=== PATIENT | male | born 1970 | race African-American/Black ===

== ENCOUNTER 2017-11-19 01:25 | Inpatient (IN) | payer OTHER ==
[~2017-11-19] VITALS: Ht 170.2 cm; Wt 117.5 kg
[~2017-11-19 01:25] MED LIST: ASPI81EC98 PO; NIFE90TE3 PO; TRA200 PO; ZOLP10TA1 PO
[2017-11-19 01:30] VITALS: BP 148/100
[2017-11-19] MEDS ORDERED: NACL 0.9% 1,000 ML IV ONE (01:35)
[2017-11-19] MEDS ORDERED: CLOPIDOGREL 75 MG TAB PO ONE (01:35)
--- NOTE | 2017-11-19 01:35 | NUR ---
PT TAKEN TO BED 2
--- NOTE | 2017-11-19 01:36 | NUR ---
47 Y/O M W/C/O HEMATURIA, R FLANK PAIN X 2 DAYS, AND CHEST PAIN X THIS AM WHICH RADIATES TO JAW AND NECK. PT PLACED ON OFFSET PRESS OPERATOR, TACHY, NON-DIAPHORECTIC. PT DENIES ANY NAUSEA. EKG DONE AT BEDSIDE, SINUS TACHY. ER MD MADE AWARE.
[2017-11-19] MEDS ORDERED: DICYCLOMINE HCL LIQUID 10 MG/5 ML UDC PO ONE (01:50)
[2017-11-19] MEDS ORDERED: MORPHINE SULFATE 2 MG/ML SYR IVP ONE ×2 (01:50→03:10)
[2017-11-19] MEDS ORDERED: LIDOCAINE VISCOUS 2% 20 ML UDC PO ONE (01:50)
[2017-11-19] MEDS ORDERED: ALUMINUM HYD/MAG/SIMETHICONE 30 ML UDC PO ONE (01:50)
[2017-11-19 01:53] LABS: BASOPHILS % (AUTO) 0.3 % (0.0-2.0); EOSINOPHILS % (AUTO) 0.1 % (0.0-4.0); HEMATOCRIT 39.2 % (36-52); HEMOGLOBIN 13.3 g/dL (12.0-18.0); LYMPHOCYTES # (AUTO) 0.4 K/uL (2.0-11.5); MEAN CORPUSCULAR HEMOGLOBIN 31 pg (27-31); MEAN CORPUSCULAR HGB CONC 34 g/dL (33-37); MEAN CORPUSCULAR VOLUME 92.4 fL (80-94); MONOCYTES # (AUTO) 0.1 K/uL (0.8-1.0); MONOCYTES % (AUTO) 0.7 % (1.7-9.3); NEUTROPHILS # (AUTO) 10.6 K/uL (1.8-7.7); NEUTROPHILS % (AUTO) 95.1 % (42.2-75.2); PLATELET COUNT (AUTO) 342 K/uL (140-450); RED BLOOD CELL COUNT(AUTO) 4.24 MIL/uL (4.20-6.10); RED CELL DISTRIBUTION WIDTH 14.6 % (11.6-13.7); WHITE BLOOD COUNT (AUTO) 11.2 K/uL (4.8-10.8)
[2017-11-19 02:04] LABS: LYMPHOCYTES % (AUTO) 3.8 % (20.5-51.1)
[2017-11-19] MEDS ORDERED: NITROGLYCERIN 2% 1 GM PKT TP ONE (02:05)
[2017-11-19 02:07] LABS: ALBUMIN 3.9 g/dL (3.4-5.0); ANION GAP 20.1 (8-16); CREATININE 2.8 mg/dL (0.7-1.3); POTASSIUM 3.1 mmol/L (3.5-5.1); TOTAL BILIRUBIN 0.3 mg/dL (0.0-1.0)
[2017-11-19] MEDS ORDERED: MORPHINE SULFATE 4 MG/ML SYR ONE ×2 (02:09→03:15)
[2017-11-19 02:13] LABS: PROTHROMBIN TIME 10.4 secs (10.8-13.4)
--- NOTE | 2017-11-19 02:16 | NUR ---
PT TO CT VIA [facility] ACCOMPANIED BY COMPLIANCE EXAMINER
--- NOTE | 2017-11-19 02:17 | NUR ---
PT TAKEN TO RAD
--- NOTE | 2017-11-19 02:28 | NUR ---
PT BACK FROM CT
--- NOTE | 2017-11-19 02:37 | NUR ---
PT OOB TO BATHROOM. SPECIMINE CUP PROVIDED
[2017-11-19] MEDS ORDERED: LEVOFLOXACIN 500 MG/D5W PREMIX 100 ML IV ONE (03:00)
--- NOTE | 2017-11-19 03:00 | NUR ---
IV MEETS RESISTANCE. ROMOVED TIP INTACT. WILL ATTEMPT A NEW IV.
[2017-11-19] MEDS ORDERED: ONDANSETRON 4 MG/2 ML VIAL IVP PRN (03:05)
[2017-11-19] MEDS ORDERED: HYDROcodone/APAP 5/325 MG 1 TAB TAB PO PRN (03:05)
[2017-11-19] MEDS ORDERED: POTASSIUM CHLORIDE 10 MEQ TABER PO ONE (03:05)
[2017-11-19] MEDS ORDERED: DEXTROSE 50% 50 ML SYR IVP PRN (03:05)
[2017-11-19] MEDS ORDERED: ACETAMINOPHEN 325 MG TAB PO PRN (03:05)
[2017-11-19] MEDS ORDERED: INSULIN REGULAR, HUMAN 100 UNIT/ML VIAL IVP ONE (03:05)
[2017-11-19] MEDS ORDERED: NITROGLYCERIN 0.4 MG TAB SL PRN (03:15)
[2017-11-19] MEDS ORDERED: fentaNYL 0.05 MG/HR PATCH TD ONE (03:35)
--- NOTE | 2017-11-19 03:40 | NUR ---
PT WITH COMPLAINTS OF PAIN. DR AYON MADE AWARE.
[2017-11-19 03:50] VITALS: BP 171/100
--- NOTE | 2017-11-19 03:50 | NUR ---
PATIENT ADMITTED TO THE UNIT FROM ER. PATIENT IS AOX4. NO SIGNS AND SYMPTOMS OF DISTRESS NOTED. COMPLAINS OF 10/10 LEFT FLANK PAIN. IV SITE NOTED ON RIGHT FOREARM, IVF INFUSING WELL. PLAN OF CARE DISCUSSED WITH PATIENT. PATIENT VERBALIZED UNDERSTANDING. WILL CONTINUE TO MONITOR.
--- NOTE | 2017-11-19 04:01 | NUR ---
ROOM AIR SATS 96%. NO OXYGEN NEEDED AT THIS TIME
--- NOTE | 2017-11-19 04:03 | NUR ---
Patient will be admitted to care of DR ORELLANA. Admited to TELE. Will go to [facility]. Belongings list completed. Report to BABAK BARR .
[2017-11-19] MEDS: diphenhydrAMINE 50 MG/ML VIAL IVP PRN ×3 (04:23→20:15)
[2017-11-19] MEDS: HYDROmorphone PFS 2 MG/ML SYR IVP PRN ×6 (04:26→23:29)
[2017-11-19] MEDS: NACL 0.9% 1,000 ML IV SCH ×3 (04:40→20:11)
[2017-11-19] MEDS ORDERED: hydrALAZINE 25 MG TAB PO SCH (04:50)
--- NOTE | 2017-11-19 04:50 | NUR ---
DR. GRIDER AWARE OF PATIENT'S ELEVATED BP. ORDERS RECEIVED AND READ BACK
[2017-11-19] MEDS ORDERED: cefTRIAXone 1,000 MG VIAL ONE (05:22)
[2017-11-19] MEDS ORDERED: INSULIN LANTUS 100 UNITS/ML 10 ML VIAL SUBQ SCH ×3 (06:00→14:07)
[2017-11-19] MEDS ORDERED: INSULIN LISPRO 100 UNITS/ML VIAL SUBQ ONE (06:00)
--- NOTE | 2017-11-19 06:02 | NUR ---
CHECKED PATIENT'S BLOOD SUGAR. GLUCOMETER READ "HI" > 600. DR. GRIDER NOTIFIED. ORDERS RECEIVED
[2017-11-19] MEDS: BLOOD GLUCOSE MONITORING 1 DEV DEV FS SCH ×4 (06:54→20:01)
--- NOTE | 2017-11-19 07:20 | NUR ---
RECHECKED BLOOD SUGAR. BLOOD SUGAR 585. WILL ENDORSE TO MORNING NURSE Addendum: 11/19/17 at 0736 by Devaughn Miller RN CHARGE NURSE AWARE
--- NOTE | 2017-11-19 07:21 | NUR ---
PATIENT REPORT GIVEN TO MORNING NURSE AT BEDSIDE. PATIENT IS IN STABLE CONDITION
--- NOTE | 2017-11-19 07:25 | NUR ---
RECEIVED PT FROM WIENER PACKER NURSE, AWAKE, LYING ON THE BED WITH AN IV LINE AT RIGHT FOREARM, G.20, NS INFUSING AT 125ML/HR, INTACT.
--- NOTE | 2017-11-19 07:45 | NUR ---
PT IS AWAKE, LYING ON THE BED, VITAL SIGNS TAKEN AND RESULT REVEALED 205/107. NO SIGN OF DISTRESS NOTED ON THE PT. CALL LIGHT WITHIN REACH. WILL MONITOR AND INFORM THE MD.
[2017-11-19 08:00] VITALS: BP 202/126
[2017-11-19] MEDS: LABETALOL 200 MG TAB PO SCH ×3 (08:22→16:51)
--- NOTE | 2017-11-19 08:30 | NUR ---
RCEIVED A CALL FROM DR. GASCA AND DOCTOR MADE A TELEPHONE ORDER OF HYDRALAZINE 10MG, IV PUSH Q2H IF SBP IS ABOVE [address] GASCA ALSO ORDERED LANTUS 10UNITS SUBQ 1ST DOSE NOW AND THEN DAILY STARTING TOMORROW. ORDERS READ BACK TO THE DOCTOR AND ACKNOWLEDGED. WILL FACILITATE MD ORDERS TO THE PT.
[2017-11-19] MEDS ORDERED: hydrALAZINE 20 MG/ML VIAL IVP PRN (08:45)
[2017-11-19] MEDS: NIFEdipine 90 MG TABER PO SCH ×2 (08:57→20:13)
[2017-11-19] MEDS ORDERED: ECOTRIN 81 MG TABEC PO SCH (09:00)
[2017-11-19] MEDS: hydrALAZINE 20 MG/ML VIAL IVP PRN ×4 (09:27→23:52)
--- NOTE | 2017-11-19 11:35 | NUR ---
PATIENT HAS BEEN SCREENED AND CATEGORIZED HIGH NUTRITION RISK. PATIENT WILL BE SEEN WITHIN 1-2 DAYS OF ADMISSION. 11/19/17 - 11/20/[address]
--- NOTE | 2017-11-19 11:35 | NUR ---
CM NOTE INITIAL REVIEW FAXED TO JOLIE [phone] PH# [phone] [place] EXT [phone]. PER NATALEE OF [facility] PH# [phone] NATALEE EXT *[phone], REVIEWS SHOULD ONLY BE SENT TO JOLIE BUT FOR ANY DISCHARGE NEEDS TO CONTACT [facility].
[2017-11-19 12:00] VITALS: BP 161/100
--- NOTE | 2017-11-19 12:55 | NUR ---
PAGED AND LEFT A MESSAGE FOR DR. GASCA REGARDING PT'S BLOOD GLUCOSE OF 455 AND BP OF 212/123.. AWAITING RESPONSE FROM DR. GASCA.
--- NOTE | 2017-11-19 13:30 | NUR ---
PT IS AWAKE LYING ON THE BED, BLOOD PRESSURE DONE RESULT REVEALED 161/100. MEDICATION GIVEN AND PT TOLERATED IT. NO SIGN OF DISTRESS NOTED. CALL LIGHT WITHIN REACH. WILL MONITOR.
--- NOTE | 2017-11-19 13:37 | NUR ---
INFORMED DR. GASCA OF PT'S BP RESULT OF 161/100(91) AND THE BLOOD GLUCOSE RESULT OF 455. DR. GASCA ACKNOWLEDGED MY REPORT ON HER.
[2017-11-19 13:39] LABS: CREATINE KINASE MB 5.5 ng/mL (0-3.6)
--- NOTE | 2017-11-19 14:07 | NUR ---
11/19/17 RD INITIAL ASSESSMENT COMPLETED PLEASE REFER TO NUTRITION ASSESSMENT UNDER CARE ACTIVITY FOR ESTIMATED NUTRITIONAL NEEDS. 1. CONTINUE CCHO 60 G DIET TOLERATED 2. RECOMMEND 70G PROTEIN RESTRICTION 3. PROVIDED PT WITH DIABETIC DIET EDUCATION 4. RD TO FOLLOW-UP 3-5 DAYS, MODERTE RISK KELBY SHAY, CHIN
--- NOTE | 2017-11-19 14:10 | NUR ---
PT IS AWAKE AND WAS SEEN BY DR. GASCA. DR. GASCA ORDERED FRO A 20 UNITS OF LANTUS FOR THE BLOOD GLUCOSE RESULT OF 455 REPORTED TO HER. MEDICATION GIVEN.
--- NOTE | 2017-11-19 15:30 | NUR ---
REPORTED TO DR. GASCA THE 700 ML URINE OF PT THAT IS ZARATE RED IN COLOR, ACKNOWLEDGED AND ORDERED FOR A URINE ANALYSIS AND URINE CULTURE.
--- NOTE | 2017-11-19 15:50 | NUR ---
ULTRASOUND OF THE KIDNEY WAS DONE. PT IS STABLE AT THIS TIME. CALL LIGHT WITHIN REACH. WILL MONITOR.
[2017-11-19 16:00] VITALS: BP 209/98
--- NOTE | 2017-11-19 16:52 | NUR ---
PT IS AWAKE AND SEATED ON THE BED. BP CHECK DONE AND MEDICATIONS GIVEN. NO SIGN OF DISTRESS NOTED. CALL LIGHT WITHIN REACH. WILL MONITOR.
[2017-11-19] MEDS: INSULIN LISPRO SLIDING SCALE 100 UNITS/ML VIAL SUBQ PRN ×2 (17:17→20:29)
[2017-11-19] MEDS: LORazepam 2 MG/ML VIAL IVP PRN ×2 (17:18→21:51)
[2017-11-19 18:55] LABS: APPEARANCE,URINE TURBID (CLEAR); BILIRUBIN,URINE NEGATIVE (NEGATIVE); BLOOD, URINE 3+ (NEGATIVE); COLOR,URINE BROWN (YELLOW); LEUKOCYTE ESTERASE ,URINE NEGATIVE (NEGATIVE); NITRITE, URINE POSITIVE (NEGATIVE); UGLUCOSE 3+ (NEGATIVE)
[2017-11-19 18:59] LABS: RBC,URINE TOO NUMEROUS TO COUN /HPF (0-5)
[2017-11-19 19:00] LABS: WBC,URINE 6-15 (FEW) /HPF (0-5)
--- NOTE | 2017-11-19 19:15 | NUR ---
ENDORSED PT TO TILE PROFESSIONAL NURSE, PT IS AMBULATING ON THE HALLWAY, PT IS STABLE AT THIS TIME. NO SIGN OF DISTRESS NOTED.
--- NOTE | 2017-11-19 19:16 | NUR ---
PATIENT REPORT RECEIVED FROM MORNING NURSE AT BEDSIDE. PATIENT IS AWAKE, ALERT AND ORIENTED. NO SIGNS AND SYMPTOMS OF DISTRESS NOTED. PATIENT ON ROOM AIR. IV SITE ON RIGHT FOREARM, IVF INFUSING WELL. PLAN OF CARE DISCUSSED WITH PATIENT. PATIENT VERBALIZED UNDERSTANDING. BED IN LOWEST POSITION, SIDE RAILS UP AND CALL LIGHT WITHIN REACH. WILL CONTINUE TO MONITOR.
[2017-11-19 20:00] VITALS: BP 168/87
[2017-11-19] MEDS: cloNIDine 0.1 MG TAB PO SCH (20:14)
[2017-11-19] MEDS: ZOLPIDEM 10 MG TAB PO SCH (20:15)
--- NOTE | 2017-11-19 20:30 | NUR ---
MEDICATION EDUCATION GIVEN. PATIENT VERBALIZED UNDERSTANDING. MEDS GIVEN ORDERED. WILL CONTINUE TO MONITOR.
[2017-11-19] MEDS ORDERED: METOPROLOL 50 MG TAB PO SCH (21:00)
--- NOTE | 2017-11-19 22:00 | NUR ---
PATIENT KEEPS REQUESTING FOOD LIKE SANDWICHES AND MILK. PATIENT STATED THAT HE VOMITED HIS BREAKFAST AND LUNCH THIS MORNING. DID NOT SEE ANY NOTE FROM MORNING NURSE ABOUT THIS.
[2017-11-20] VITALS (7 sets, daily range): BP systolic 115–189; BP diastolic 68–95
--- NOTE | 2017-11-20 01:00 | NUR ---
CHECKED ON PATIENT. PATIENT IS ASLEEP. NO SIGNS AND SYMPTOMS OF DISTRESS NOTED. BREATHING EVEN AND UNLABORED. WILL CONTINUE TO MONITOR.
[2017-11-20] MEDS: NACL 0.9% 1,000 ML IV SCH ×2 (03:11→11:04)
--- NOTE | 2017-11-20 03:15 | NUR ---
NO DILAUDID IN MEDSURG OR TELE. NOTIFIED CHARGE NURSE DARRIN
[2017-11-20] MEDS: diphenhydrAMINE 50 MG/ML VIAL IVP PRN ×4 (03:17→23:12)
[2017-11-20] MEDS: LORazepam 2 MG/ML VIAL IVP PRN ×5 (03:19→23:13)
[2017-11-20] MEDS: HYDROmorphone PFS 2 MG/ML SYR IVP PRN ×6 (03:22→20:43)
[2017-11-20 03:27] LABS: ANION GAP 12.7 (8-16); CARBON DIOXIDE 26.8 mmol/L (21-32); CREATININE 1.8 mg/dL (0.7-1.3); POTASSIUM 3.5 mmol/L (3.5-5.1)
[2017-11-20 03:30] LABS: BASOPHILS % (AUTO) 0.3 % (0.0-2.0); HEMATOCRIT 31.6 % (36-52); HEMOGLOBIN 10.7 g/dL (12.0-18.0); LYMPHOCYTES # (AUTO) 0.7 K/uL (2.0-11.5); MEAN CORPUSCULAR HEMOGLOBIN 31 pg (27-31); MEAN CORPUSCULAR HGB CONC 34 g/dL (33-37); MEAN CORPUSCULAR VOLUME 92.3 fL (80-94); MONOCYTES # (AUTO) 1.6 K/uL (0.8-1.0); NEUTROPHILS # (AUTO) 13.7 K/uL (1.8-7.7); NEUTROPHILS % (AUTO) 85.4 % (42.2-75.2); PLATELET COUNT (AUTO) 283 K/uL (140-450); RED BLOOD CELL COUNT(AUTO) 3.43 MIL/uL (4.20-6.10); RED CELL DISTRIBUTION WIDTH 14.5 % (11.6-13.7)
--- NOTE | 2017-11-20 03:30 | NUR ---
SCANNED DILAUDID TWICE ON ACCIDENT. ONLY ADMINISTERED 1MG. CHARGE NURSE DARRIN AWARE
[2017-11-20 03:40] LABS: CREATINE KINASE MB 6.3 ng/mL (0-3.6)
[2017-11-20 03:41] LABS: FREE T4 (FREE THYROXINE) 0.67 ng/dL (0.76-1.46); THYROID STIMULATING HORMONE 0.17 uIU/mL (0.34-3.74)
[2017-11-20 04:34] LABS: LYMPHOCYTES % (AUTO) 4.3 % (20.5-51.1)
[2017-11-20] MEDS: cloNIDine 0.1 MG TAB PO SCH ×3 (05:41→20:42)
[2017-11-20] MEDS: INSULIN LISPRO SLIDING SCALE 100 UNITS/ML VIAL SUBQ PRN ×4 (05:46→20:39)
[2017-11-20] MEDS: BLOOD GLUCOSE MONITORING 1 DEV DEV FS SCH ×4 (06:30→20:50)
--- NOTE | 2017-11-20 07:32 | NUR ---
PATIENT REPORT GIVEN TO MORNING NURSE AT BEDSIDE. PATIENT IS IN STABLE CONDITION
--- NOTE | 2017-11-20 07:33 | NUR ---
RECEIVED REPORT FROM CONTENT MANAGER NURSE CORTNEY AT BEDSIDE FOR CONTINUITY OF CARE. PT IS AWAKE AND ORIENTED X4. INTRODUCED SELF AND UPDATED BOARD. PT IS SITTING UP IN BED EATING BREAKFAST. NO SIGNS OF DISTRESS. O2 SAT 98% ON RA . CALL LIGHT WITHIN REACH. WILL CONTINUE TO MONITOR.
--- NOTE | 2017-11-20 07:43 | NUR ---
CM NOTE CONCURRENT REVIEW FAXED TO JOLIE [phone] # [phone] [place] EXT [phone].
[2017-11-20] MEDS ORDERED: INSULIN LANTUS 100 UNITS/ML 10 ML VIAL SUBQ SCH (09:00)
[2017-11-20] MEDS: NIFEdipine 90 MG TABER PO SCH ×2 (09:05→20:42)
[2017-11-20] MEDS: LABETALOL 200 MG TAB PO SCH ×3 (09:06→17:39)
--- NOTE | 2017-11-20 11:30 | NUR ---
PT COMPLAINED OF PAIN ON LOWER BACK. ADMINISTERED DILAUDID FOR PAIN IVP. PT TOLERATED WELL. EDUCATED PT ON TIME AND FREQUENCY OF MEDS. VERBALIZED UNDERSTANDING. NO SIGNS OF DISTRESS. CALL LIGHT WITHIN REACH. WILL CONTINUE TO MONITOR.
[2017-11-20] MEDS: hydrALAZINE 20 MG/ML VIAL IVP PRN (11:47)
--- NOTE | 2017-11-20 12:07 | NUR ---
RD VISITED PT TO INFORM HIM THAT HE COULD HAVE 2 PORTIONS OF PROTEIN AND NONSTRATCHY VEGETABLES PER MEAL. PT LISTENED AND AGREED. PT STATED THAT HIS BREAKFAST CONTAINING OATMEAL AND PANCAKES CAUSED HIM TO VOMIT. RD ASSURED HIM THOSE FOODS WILL NOT BE IN HIS BREAKFAST TRAY IN THE FUTURE.
--- NOTE | 2017-11-20 13:35 | NUR ---
PT SEEN AMBULATING DOWN THE HALLWAY WITH STEADY GAIT. NO COMPLAINTS AT THIS TIME. WILL CONTINUE TO MONITOR.
--- NOTE | 2017-11-20 15:30 | NUR ---
EDUCATED PT ON BS MONITORING AND GLYCEMIC CONTROL WITH FOOD AND EXERCISE. PT STILL ASKING FOR GRAM CRACKERS AND MILK. PT STATED HE WILL WALK TO BRING HIS BS DOWN. NO SIGNS OF DISTRESS. WILL CONTINUE TO MONITOR.
--- NOTE | 2017-11-20 19:05 | NUR ---
ENDORSED PT TO PM NURSE FOR CONTINUITY OF CARE AT BED SIDE. PT STABLE CONDITION.
--- NOTE | 2017-11-20 19:30 | NUR ---
RECEIVED FROM AM RN IN CHAIR SITTING AND WATCHING TV. ABLE TO VERBALIZE NEEDS WELL. NO SOB. PT. JUST HAD ATIVAN IVP DURING CHANGE OF SHIFT. PT. DX. OF NEW ONSET DM AND ARF. A/O X4. CARE PLANS FOR THE NIGHT DISCUSSED WITH PT. AND TO USE CALL LIGHT FOR ANY HELP HE MAY NEED.
[2017-11-20] MEDS: ZOLPIDEM 10 MG TAB PO SCH (20:42)
--- NOTE | 2017-11-20 21:44 | NUR ---
PT. REFUSING TO LISTEN AND ADVICE RE: SNACK PROVIDED FOR DM PT. DEMANDED FOR SANDWICH AND PT. ANGRY ABOUT THE ADVICE. REFUSED TO LISTEN. INFORMED QUICK SKETCH ARTIST ABOUT IT. PROVIDED WITH SANDWICH REQUESTED. DIABETIC EDUCATION PROVIDED.
[2017-11-21] VITALS (8 sets, daily range): BP systolic 143–182; BP diastolic 64–111
[2017-11-21] MEDS: HYDROmorphone PFS 2 MG/ML SYR IVP PRN ×7 (00:42→21:41)
--- NOTE | 2017-11-21 00:51 | NUR ---
PT. STILL AWAKE AND KEEPS ASKING FOR SANDWICH. INFORMED BY CHARGE NURSE THAT HE HAD HIS MIDNIGHT SNACKS OF 5 CRACKERS AND 1 TUNA SANDWICH. RE-ORIENTED TO DM DIET.
--- NOTE | 2017-11-21 01:30 | NUR ---
PT. UPSET AND WANTS DILAUDID IVP. INFORMED HIM THAT IT WAS JUST GIVEN TO HIM HE HAD REQUESTED. REFUSED TO BELIEVE THAT HE HAD IT. PT. WALKING AROUND THE UNIT AND IN THE HALLWAY AND IN THE [place] AREA. ADVISED BY NURSES TO STAY IN ROOM.
--- NOTE | 2017-11-21 01:50 | NUR ---
PT. IN HIS ROOM AND SITTING IN CHAIR. TELEMETRY MONITORING. ENCOURAGED TO STAY IN HIS ROOM AND REST.
--- NOTE | 2017-11-21 03:40 | NUR ---
SLEPT FOR A SHIRT TIME. SNORING BUT WOKE UP IMMEDIATELY AND DEMANDED FOR PAIN RELIEVER , ATIVAN AND BENADRYL. INFORMED BY CHARGE NURSE THAT HE HAS BEEN ASKING SINCE 1 HOUR AGO AND THAT IT IS NOT TIME YET.
[2017-11-21] MEDS ORDERED: cefTRIAXone 1,000 MG VIAL ONE ×2 (03:45)
[2017-11-21] MEDS: LORazepam 2 MG/ML VIAL IVP PRN ×4 (03:51→16:37)
--- NOTE | 2017-11-21 04:18 | NUR ---
PT. STATED HE NEVER SLEPT AND DEMANDED FOR ATIVAN, BENADRYL AND DILAUDID IVP TOGETHER. INFORMED HIM THAT BENADRYL IVP IS NOT DUE YET. PT. GOT UPSET AND STATING THAT I WAS NOT SAYING THE TRUTH. SHOWED PT. HIS MEDICATION TIMING AND SETTLED DOWN. ADMINISTERED DILAUDID 1 MG IVP AND ATIVAN ORDERED. PT. STATED TO GIVE HIM HIS BENADRYL IVP EVEN WHEN HE IS SLEEPING AND THAT I SHOULD WAKE HIM UP.
--- NOTE | 2017-11-21 04:23 | NUR ---
ENCOURAGED TO LAY DOWN IN BED AND RELAXED. THIS TIME PT. AGREED WITH UNDERSTANDING THAT HE IS TO HAVE HIS BENADRYL SOON IT IS AVAILABLE FOR HIM ASLEEP OR NOT. WILL MONITOR. ROCEPHIN 1 GM IVP INFUSING .
--- NOTE | 2017-11-21 04:30 | NUR ---
PT. SLEEPING AT THIS TIME. WOKE UP EASILY WHEN ASKED IF HE IS OK. TELEMETRY MONITORING.
--- NOTE | 2017-11-21 05:25 | NUR ---
FINISHED CARPET INSPECTOR IN HERE AND TAKING BLOOD SPECIMEN. ABLE TO ANSWER TO LAB. TECH QUESTIONS.
[2017-11-21] MEDS: cloNIDine 0.1 MG TAB PO SCH ×3 (06:00→21:39)
[2017-11-21] MEDS: BLOOD GLUCOSE MONITORING 1 DEV DEV FS SCH ×4 (06:04→21:48)
[2017-11-21] MEDS: INSULIN LISPRO SLIDING SCALE 100 UNITS/ML VIAL SUBQ PRN ×4 (06:08→21:49)
--- NOTE | 2017-11-21 06:40 | NUR ---
PT. SLEEPING . WAKES UP EASILY AND EVERY TIME HE WAKES UP HE SAYS "I NEED MY ATIVAN, BENADRYL AND DILAUDID IVP. " ALWAYS REMINDED THAT HE JUST GOT IT AN HOUR AGO OR NOT IN TIME YET. PT. REFUSING TO SLEEP WHOLE SHIFT EXCEPT THIS EARLY A.M. ON TELEMETRY MONITORING.
[2017-11-21 06:52] LABS: BASOPHILS % (AUTO) 0.2 % (0.0-2.0); EOSINOPHILS # (AUTO) 0.2 K/uL (0-0.4); EOSINOPHILS % (AUTO) 1.9 % (0.0-4.0); HEMATOCRIT 34.6 % (36-52); HEMOGLOBIN 11.8 g/dL (12.0-18.0); LYMPHOCYTES # (AUTO) 1.5 K/uL (2.0-11.5); LYMPHOCYTES % (AUTO) 17.3 % (20.5-51.1); MEAN CORPUSCULAR HEMOGLOBIN 32 pg (27-31); MEAN CORPUSCULAR HGB CONC 34 g/dL (33-37); MEAN CORPUSCULAR VOLUME 92.6 fL (80-94); MONOCYTES # (AUTO) 1.3 K/uL (0.8-1.0); MONOCYTES % (AUTO) 15.1 % (1.7-9.3); NEUTROPHILS # (AUTO) 5.8 K/uL (1.8-7.7); NEUTROPHILS % (AUTO) 65.5 % (42.2-75.2); PLATELET COUNT (AUTO) 300 K/uL (140-450); RED BLOOD CELL COUNT(AUTO) 3.74 MIL/uL (4.20-6.10); RED CELL DISTRIBUTION WIDTH 14.6 % (11.6-13.7); WHITE BLOOD COUNT (AUTO) 8.8 K/uL (4.8-10.8)
[2017-11-21] MEDS: hydrALAZINE 20 MG/ML VIAL IVP PRN (07:48)
--- NOTE | 2017-11-21 07:50 | NUR ---
REMOVED OLD IV SITE TO RFA WHICH WAS INFILTRATED. LUMEN INTACT. TOLERATED WELL. LEFT HAND RING FINGER IV STARTED WITH 24G X 1 ATTEMPT. PATIENT TOLERATED WELL. PATENT AND INTACT. GOOD BLOOD RETURN AND FLUSHES EASY WITH NS. WILL CONT TO MONITOR.
[2017-11-21] MEDS: diphenhydrAMINE 50 MG/ML VIAL IVP PRN ×3 (08:00→21:41)
--- NOTE | 2017-11-21 08:00 | NUR ---
INITIAL ASSESSMENT PERFORMED. PATIENT ALERT AND ABLE TO VERBALIZE NEEDS NO ACUTE DISTRESS. PATIENT STATED 8/10 PAIN TO LEFT FLANK. MEDICATED WITH DILAUDID AND BENADRYL PER ORDER. LUNG SOUNDS CLEAR. BOWEL SOUNDS ACTIVE LBM TODAY. VOIDING FREELY.ABLE TO AMBULATE IN HALLS WITHOUT DIFFICULTIES. SKIN INTACT. PLAN OF CARE DISCUSSED WITH PATIENT. PATIENT VERBALIZED UNDERSTANDING AND AGREEMENT. ORIENTED TO ROOM. CALL LIGHT WITHIN REACH. WILL CONT TO MONITOR.
[2017-11-21 08:03] LABS: ALBUMIN 3.8 g/dL (3.4-5.0); ANION GAP 15.7 (8-16); CARBON DIOXIDE 25.1 mmol/L (21-32); CREATININE 1.5 mg/dL (0.7-1.3); TOTAL BILIRUBIN 0.2 mg/dL (0.0-1.0)
[2017-11-21 08:20] LABS: POTASSIUM 2.8 mmol/L (3.5-5.1)
[2017-11-21] MEDS: NIFEdipine 90 MG TABER PO SCH ×2 (08:24→21:45)
--- NOTE | 2017-11-21 08:32 | NUR ---
CM NOTE CONCURRENT REVIEW FAXED TO JOLIE [phone] # [phone] [place] EXT [phone].
--- NOTE | 2017-11-21 08:50 | NUR ---
CRITICAL LAB REPORTED TO DR GASCA OF POTASSIUM OF 2.8 WITH NEW ORDERS FOR KDUR 60MEQ TAB ONCE. WILL ADMINISTER TO PATIENT ONCE VERIFIED.
[2017-11-21] MEDS ORDERED: INSULIN LANTUS 100 UNITS/ML 10 ML VIAL SUBQ SCH (09:00)
[2017-11-21] MEDS ORDERED: POTASSIUM CHLORIDE 10 MEQ TABER PO SCH (09:00)
[2017-11-21] MEDS: LABETALOL 200 MG TAB PO SCH ×3 (09:29→16:37)
--- NOTE | 2017-11-21 11:30 | NUR ---
PATIENT ALERT AND ABLE TO VERBALIZE NEEDS. NO ACUTE DISTRESS NOTED.PATIENT STATED 8/10 PAIN. STATING THAT LEFT FLANK IN PAINFUL. ADMINISTERED DILAUDID ORDERED. WILL CONT TO MONITOR.
--- NOTE | 2017-11-21 14:00 | NUR ---
PATIENT ALERT AND ABLE TO MAKE NEEDS KNOWN. NO ACUTE DISTRESS NOTED. RESP EVEN AND UNLABORED. PATIENT REQUESTING SNACK. WILL CONT TO MONITOR.
--- NOTE | 2017-11-21 16:00 | NUR ---
PATIENT ROOM CHANGED TO 113 D/T ISOLATION PRECAUTIONS. ESBL IN URINE DR GASCA NOTIFIED. DR GASCA TO WRITE IN NEW ORDERS. PATIENT MADE AWARE.
--- NOTE | 2017-11-21 16:30 | NUR ---
PATIENT ALERT AND ABLE TO MAKE NEEDS KNOWN. PATIENT NOTIFIED THAT DISCHARGE ORDER IN PLACE. PATIENT STATED THAT HE HAD FAMILY THAT COULD PICK HIM UP AFTER WIRK AROUND 9-10PM.
--- NOTE | 2017-11-21 18:29 | NUR ---
PATIENT IN BED WITH EYES CLOSED. RESP EVEN AND UNLABORED. HAD DINNER AND WAS WATCHING TV. WILL CONT TO MONITOR.
[2017-11-21] MEDS ORDERED: INSU100S22 SUBQ (18:43)
[2017-11-21] MEDS ORDERED: GLIM2TAB PO (18:44)
[2017-11-21] MEDS ORDERED: NITR100C7 PO (18:45)
[2017-11-21] MEDS ORDERED: ACET-2858 PO (18:46)
[2017-11-21] MEDS ORDERED: CLON0.2T43 PO (18:47)
--- NOTE | 2017-11-21 19:20 | NUR ---
ENDORSED REPORT TO SUPERINTENDENT TERMINAL NURSE AT BEDSIDE FOR CONTINUITY OF CARE. PATIENT STABLE. TO BE DC TONIGHT.
--- NOTE | 2017-11-21 19:21 | NUR ---
RECEIVED REPORT AT PT BEDSIDE FROM DAY SHIFT RN, FOR CONTINUITY OF CARE. PATIENT IS AWAKE, A/OX4 ON ROOM AIR. ABLE TO MAKE NEEDS KNOWN, ABLE TO FOLLOW COMMANDS. PT SKIN INTACT, WARM AND DRY. PATIENT HAS PERIPHERAL IV SITE TO LEFT HAND RING FINGER 24G, ASYMPTOMATIC, INTACT, PATENT. RESPIRATIONS EVEN AND UNLABORED. UPDATED BOARD. DISCUSSED PLAN OF CARE WITH PT, PT VERBALIZED UNDERSTANDING. VITAL SIGNS WNL. PT STABLE, NO SIGNS OF DISTRESS NOTED AT THIS TIME. BED IN LOWEST POSITION, CALL LIGHT WITHIN REACH. WILL CONTINUE TO MONITOR.
[2017-11-21] MEDS: ZOLPIDEM 10 MG TAB PO SCH (21:40)
--- NOTE | 2017-11-21 21:47 | NUR ---
EDUCATED PT ON INSULIN USE AND PT DEMONSTRATED PROPPER USE OF INSULIN ADMINISTRATION. DISCHARGE EDUCATION WAS GIVEN, PT SIGNED ALL D/C DOCUMENTS.
--- NOTE | 2017-11-21 21:50 | NUR ---
ADMINISTERED SCHEDULED MEDICATIONS, PT TOLERATED WELL. ALSO ADMINISTERED DILAUDID AND BENADRYL FR PAIN AND ITCHING.
--- NOTE | 2017-11-21 22:45 | NUR ---
REMOVED PT IV, CATHETER SAME OUT INTACT, REMOVED TELE MONITOR AND ARMBANDS. TOLD PT TO WAIT FOR WHEELCHAIR BUT PT SAID NO AND STARTED WALKING OUT. PT LEFT IN STABLE CONDITION.
--- NOTE | 2017-11-22 08:04 | NUR ---
CM NOTE RECEIVED NOTIFICATION FROM JOLIE [phone], APPROVED 11/19/[address] NRD 11/26/17. FAX D/C SUMMARY IF MBR D/C PRIOR TO NRD. DO NOT FAX DAILY CLINICAL DOCUMENTS/REVIEWS. NO CLINICAL NEEDED UNTIL NRD. DISCHARGE SUMMARY FAXED TO JOLIE [phone] # [phone] [place] EXT [phone].
[2017-11-22] MEDS ORDERED: LIDOCAINE 5% 1 EA PATCH TP SCH (09:00)
== END 2017-11-21 22:50 | disposition home or self-care (01) | DRG 720 ==
LOC: MED 01:25 → MTU 03:12
PROVIDERS: ADMIT Hospitalist; ATTEND Hospitalist
DX: A41.9 Sepsis, unspecified organism (principal); N17.0 Acute kidney failure with tubular necrosis; E11.00 Type 2 diabetes mellitus with hyperosmolarity without nonketotic hyperglycemic-hyperosmolar coma (NKHHC); E11.21 Type 2 diabetes mellitus with diabetic nephropathy; E87.8 Other disorders of electrolyte and fluid balance, not elsewhere classified; N12 Tubulo-interstitial nephritis, not specified as acute or chronic; Z68.41 Body mass index [BMI] 40.0-44.9, adult; E11.22 Type 2 diabetes mellitus with diabetic chronic kidney disease; N18.9 Chronic kidney disease, unspecified; E66.9 Obesity, unspecified; Z88.8 Allergy status to other drugs, medicaments and biological substances; E78.5 Hyperlipidemia, unspecified; I12.9 Hypertensive chronic kidney disease with stage 1 through stage 4 chronic kidney disease, or unspecified chronic kidney disease; Z91.02 Food additives allergy status; N30.01 Acute cystitis with hematuria; R07.89 Other chest pain; Z88.6 Allergy status to analgesic agent; Z79.4 Long term (current) use of insulin; E87.1 Hypo-osmolality and hyponatremia
CPT/HCPCS: 36415; 71045; 76770; 80048; 80053; 81001; 82533; 82550; 82553; 82948; 83036; 83735; 84439; 84443; 84484; 85025; 85610; 85730; 87081; 87086; 87186; 96374; 99285; J0360; J0696; J1170; J1200; J1644; J1815; J1956; J2060; J2270; J7030; J7060; Q0092

== ENCOUNTER 2018-11-22 20:15 | Inpatient (IN) | payer MEDICAID, OTHER ==
[~2018-11-22] VITALS: Ht 170.2 cm; Wt 106.6 kg
[~2018-11-22 20:15] MED LIST changes: +CLON0.2T43 PO; +GLIM2TAB PO; +HYDR-5092 PO; +INSU100S22 SUBQ; +NITR100C7 PO
[2018-11-22 20:19] VITALS: BP 168/100
--- NOTE | 2018-11-22 20:22 | NUR ---
TO LOBBY A/W BED, AMBULATORY
--- NOTE | 2018-11-22 20:37 | NUR ---
TO ED 01 WITH STEADY GAIT.
--- NOTE | 2018-11-22 20:48 | NUR ---
PT TO ED WITH C/O HEMATURIA, CHEST PRESSURE, AND BLE EDEMA X 3 DAYS. PT DENIES CARDIAC HX WITH EXCEPTION OF HTN. NO BLADDER DISTENTION NOTED, PT REPORTS DYSURIA. EDEMA NOTED TO BILATERAL LOWER LEGS, NON PITTING. LUNG SOUNDS CTA. PT PLACED INTO BED, PENDING MD LUCERO.
[2018-11-22] MEDS ORDERED: MORPHINE SULFATE 4 MG/ML SYR IVP ONE ×2 (21:00→22:10)
[2018-11-22] MEDS ORDERED: ONDANSETRON 4 MG/2 ML VIAL IVP ONE (21:00)
[2018-11-22] MEDS ORDERED: NACL 0.9% 1,000 ML IV ONE (21:00)
--- NOTE | 2018-11-22 21:07 | NUR ---
RAD AT BEDSIDE.
[2018-11-22 21:37] LABS: BASOPHILS % (AUTO) 0.6 % (0.0-2.0); EOSINOPHILS # (AUTO) 0.3 K/uL (0-0.4); EOSINOPHILS % (AUTO) 4.6 % (0.0-4.0); HEMATOCRIT 34.5 % (36-52); HEMOGLOBIN 11.9 g/dL (12.0-18.0); LYMPHOCYTES # (AUTO) 1.5 K/uL (2.0-11.5); LYMPHOCYTES % (AUTO) 19.7 % (20.5-51.1); MEAN CORPUSCULAR HEMOGLOBIN 31 pg (27-31); MEAN CORPUSCULAR HGB CONC 34 g/dL (33-37); MEAN CORPUSCULAR VOLUME 90.7 fL (80-94); MONOCYTES # (AUTO) 0.8 K/uL (0.8-1.0); MONOCYTES % (AUTO) 11.4 % (1.7-9.3); NEUTROPHILS # (AUTO) 4.7 K/uL (1.8-7.7); NEUTROPHILS % (AUTO) 63.7 % (42.2-75.2); PLATELET COUNT (AUTO) 258 K/uL (140-450); RED BLOOD CELL COUNT(AUTO) 3.81 MIL/uL (4.20-6.10); RED CELL DISTRIBUTION WIDTH 14.7 % (11.6-13.7); WHITE BLOOD COUNT (AUTO) 7.4 K/uL (4.8-10.8)
[2018-11-22 21:48] LABS: APPEARANCE,URINE SL CLOUDY (CLEAR); BILIRUBIN,URINE 1+ (NEGATIVE); BLOOD, URINE 3+ (NEGATIVE); COLOR,URINE RED (YELLOW); LEUKOCYTE ESTERASE ,URINE TRACE (NEGATIVE); NITRITE, URINE POSITIVE (NEGATIVE); PH,URINE 6.5 (5.0-9.0); UGLUCOSE NEGATIVE (NEGATIVE)
[2018-11-22 21:56] LABS: RBC,URINE TOO NUMEROUS TO COUN /HPF (0-5)
[2018-11-22 21:57] LABS: WBC,URINE 16-25 (MOD) /HPF (0-5)
[2018-11-22 22:02] LABS: ALBUMIN 3.4 g/dL (3.4-5.0); ANION GAP 10.6 (8-16); CARBON DIOXIDE 28.2 mmol/L (21-32); CREATININE 1.8 mg/dL (0.7-1.3); TOTAL BILIRUBIN 0.3 mg/dL (0.0-1.0)
[2018-11-22 22:09] LABS: POTASSIUM 2.8 mmol/L (3.5-5.1)
[2018-11-22] MEDS ORDERED: POTASSIUM CHLORIDE 10 MEQ TABER PO ONE (22:10)
--- NOTE | 2018-11-22 22:15 | NUR ---
PT REMOVED IV. SITE INTACT. ER CHARGE NURSE AT BEDSIDE. FOR PLACEMENT OF NEW IV.
[2018-11-22] MEDS ORDERED: cefTRIAXone 1,000 MG VIAL ONE (22:21)
--- NOTE | 2018-11-22 22:30 | NUR ---
MINE GEOLOGIST AT BEDSIDE ATTEMPTING IV ACCESS. ER AWARE.
--- NOTE | 2018-11-22 22:55 | NUR ---
TOE CLOSING MACHINE TENDER REMAINS AT BEDSIDE ATTEMPTING IV ACCESS. ER MD AWARE.
--- NOTE | 2018-11-22 23:09 | NUR ---
PER GIANLUCA KIRK TO GIVE MORPHINE IM.
--- NOTE | 2018-11-22 23:11 | NUR ---
MORPHINE GIVEN IM PER DR CHICAS.
--- NOTE | 2018-11-22 23:35 | NUR ---
IV ACCESS OBTAINED TO L FOREARM BY PAPER REWINDER OPERATOR, KEVIN.
[2018-11-23] VITALS (7 sets, daily range): BP systolic 151–200; BP diastolic 86–121
[2018-11-23] MEDS ORDERED: NACL 0.9% 1,000 ML IV SCH (00:16)
[2018-11-23] MEDS ORDERED: DOCUSATE SODIUM 100 MG GELCAP PO PRN (00:20)
[2018-11-23] MEDS ORDERED: MORPHINE SULFATE 2 MG/ML SYR IVP PRN ×2 (00:20→02:25)
[2018-11-23] MEDS ORDERED: DEXTROSE 50% 50 ML SYR IVP PRN (00:20)
[2018-11-23] MEDS ORDERED: HYDROcodone/APAP 5/325 MG 1 TAB TAB PO PRN ×2 (00:20→02:25)
[2018-11-23] MEDS ORDERED: ZOLPIDEM 5 MG TAB PO PRN (00:20)
[2018-11-23] MEDS ORDERED: LORazepam 2 MG/ML VIAL IM/IVP PRN (00:20)
[2018-11-23] MEDS ORDERED: ONDANSETRON 4 MG/2 ML VIAL IM/IVP PRN (00:20)
[2018-11-23] MEDS ORDERED: ACETAMINOPHEN 325 MG TAB PO PRN (00:20)
[2018-11-23 00:51] LABS: PROTHROMBIN TIME 9.3 secs (10.8-13.4)
[2018-11-23 01:00] LABS: MAGNESIUM 1.9 mg/dL (1.8-2.4); PHOSPHORUS 3.1 mg/dL (2.5-4.9); THYROID STIMULATING HORMONE 2.04 uIU/mL (0.34-3.74)
--- NOTE | 2018-11-23 01:00 | NUR ---
RECEIVED BEDSIDE REPORT FROM UZMA SIMON RN. PT IS AAO X4. RESPIRATIONS ARE EQUAL AND UNLABORED. LUNG SOUNDS ARE CLEAR. SKIN IS INTACT. PT WITH WILLIAM PITTING EDEMA +2. PT IS AMBULATORY. IV TO LEFT FA 20G IVF INFUSING PER ORDERS. PT POTASSIUM IS 2.8 RECEIVED K DUR IN ER. C/C HEMATURIA, LEFT FLANK PAIN AND CHEST PAIN. PT DENIES CP AT THIS TIME. ADMITTING VS: 175/121, HR 89, 99% ON RA, RR 16, TEMP 98.6. DR IRELAND MADE AWARE OF HIGH B/P WILL AWAIT NEW ORDERS. MRSA SWAB OBTAINED. PLAN OF CARE DISCUSSED WITH PT. SAFETY MEASURES ARE IN PLACE. CALL LIGHT WITHIN REACH. WILL CONTINUE TO MONITOR.
--- NOTE | 2018-11-23 01:01 | NUR ---
Patient will be admitted to care of DR DE LEON. Admited to TELE. Will go to room 118-A. Belongings list completed. Report to BABAK HACKETT.
[2018-11-23] MEDS ORDERED: HYDR-5122 PO (01:03)
[2018-11-23] MEDS ORDERED: TRA200 PO (01:03)
[2018-11-23] MEDS ORDERED: NITROGLYCERIN 0.4 MG TAB SL PRN (01:05)
[2018-11-23] MEDS ORDERED: FUROSEMIDE 40 MG/4 ML VIAL IVP SCH ×2 (01:30→19:00)
[2018-11-23 01:40] LABS: BARBITURATE, URINE NEG. ng/ml (NEG <=200); BENZODIAZEPINE, URINE NEG. ng/mL (NEG <=200); CANNABINOID, URINE NEG. ng/mL (NEG <=50); COCAINE, URINE NEG. ng/mL (NEG <=300); OPIATE, URINE NEG. ng/mL (NEG <=2000)
[2018-11-23] MEDS ORDERED: POTASSIUM CHLORIDE 40 MEQ, LIDOCAINE MPF 1% - 5 mL VIAL 25 MG in NACL 0.9% 250 ML IV SCH (02:00)
--- NOTE | 2018-11-23 02:00 | NUR ---
LASIX ADMINISTERED PER ORDERS. PT IS SITTING AT THE EDGE OF BED. EATING SANDWICH. CALL LIGHT WITHIN REACH. WILL CONTINUE TO MONITOR.
[2018-11-23 02:06] LABS: PHENCYCLIDINE SCREEN,URINE NEG. ng/mL (NEG <=25)
[2018-11-23] MEDS ORDERED: HYDROmorphone 1 MG/ML AMP IVP SCH ×4 (02:30→16:10)
[2018-11-23] MEDS ORDERED: LISINOPRIL 20 MG TAB PO SCH ×2 (02:30→09:00)
--- NOTE | 2018-11-23 02:40 | NUR ---
SCHEDULED MEDICATIONS GIVEN. PT TOLERATED WELL. ALL NEEDS MET AT THIS TIME. CALL LIGHT WITHIN REACH
[2018-11-23] MEDS: LEVOFLOXACIN 500 MG/D5W PREMIX 100 ML IV SCH (02:43)
--- NOTE | 2018-11-23 04:00 | NUR ---
B/P ELEVATED 200/[address] MADE AWARE WILL AWAIT NEW ORDERS. ALL NEEDS MET AT THIS TIME. CALL LIGHT WITHIN REACH.
[2018-11-23 04:36] LABS: BASOPHILS % (AUTO) 0.4 % (0.0-2.0); EOSINOPHILS # (AUTO) 0.4 K/uL (0-0.4); EOSINOPHILS % (AUTO) 4.4 % (0.0-4.0); HEMATOCRIT 36.2 % (36-52); HEMOGLOBIN 12.6 g/dL (12.0-18.0); LYMPHOCYTES # (AUTO) 1.2 K/uL (2.0-11.5); LYMPHOCYTES % (AUTO) 13.8 % (20.5-51.1); MEAN CORPUSCULAR HEMOGLOBIN 32 pg (27-31); MEAN CORPUSCULAR HGB CONC 35 g/dL (33-37); MEAN CORPUSCULAR VOLUME 91.4 fL (80-94); MONOCYTES # (AUTO) 0.8 K/uL (0.8-1.0); MONOCYTES % (AUTO) 9.1 % (1.7-9.3); NEUTROPHILS # (AUTO) 6.1 K/uL (1.8-7.7); NEUTROPHILS % (AUTO) 72.3 % (42.2-75.2); PLATELET COUNT (AUTO) 262 K/uL (140-450); RED BLOOD CELL COUNT(AUTO) 3.97 MIL/uL (4.20-6.10); RED CELL DISTRIBUTION WIDTH 14.8 % (11.6-13.7); WHITE BLOOD COUNT (AUTO) 8.5 K/uL (4.8-10.8)
[2018-11-23] MEDS: cloNIDine 0.1 MG TAB PO SCH ×3 (04:50→16:05)
[2018-11-23 04:58] LABS: CHOL/HDL RATIO 4.3 (1-4.5); MAGNESIUM 1.9 mg/dL (1.8-2.4); PHOSPHORUS 3.2 mg/dL (2.5-4.9)
[2018-11-23] MEDS ORDERED: POTASSIUM CHLORIDE 10 MEQ TABER PO SCH ×2 (05:00→20:00)
[2018-11-23 05:54] LABS: CREATININE 1.8 mg/dL (0.7-1.3)
[2018-11-23 06:05] LABS: ANION GAP 16.7 (8-16); CARBON DIOXIDE 23.3 mmol/L (21-32)
[2018-11-23] MEDS: BLOOD GLUCOSE MONITORING 1 DEV DEV FS SCH ×4 (06:24→20:29)
--- NOTE | 2018-11-23 06:40 | NUR ---
RECHECKED B/P AFTER CATAPRES. B/P 189/[address] ACOSTA WILL AWAIT ANY NEW ORDERS.
[2018-11-23] MEDS: INSULIN LISPRO SLIDING SCALE 100 UNITS/ML VIAL SUBQ PRN ×2 (07:11→20:33)
--- NOTE | 2018-11-23 07:32 | NUR ---
Received report from pm nurse Gretta. Pt asleep in bed, respirations even & nonlabored, FLACC 0. Call light within reach. Left arm IV intact with ongoing NS @ 20ml/hr. Will cont to monitor.
--- NOTE | 2018-11-23 07:32 | NUR ---
BEDSIDE REPORT GIVEN TO DAY SHIFT RN. PT ENDORSED IN STABLE CONDITION.
--- NOTE | 2018-11-23 08:00 | NUR ---
Pt with 550ml red urine in urinal. Urinal emptied. Pt in no apparent signs of distress.
[2018-11-23] MEDS: LACTOBACILLUS RHAMNOSUS GG 1 EACH CAP PO SCH (08:48)
[2018-11-23] MEDS: HYDROcodone/APAP 10/325 MG 1 TAB TAB PO SCH ×4 (08:49→20:21)
[2018-11-23] MEDS ORDERED: HYDROcodone/APAP 5/325 MG 1 TAB TAB PO SCH (09:00)
[2018-11-23] MEDS ORDERED: LABETALOL 100 MG TAB PO SCH ×2 (09:00→21:00)
[2018-11-23] MEDS ORDERED: LISINOPRIL 5 MG TAB PO SCH ×2 (09:00)
[2018-11-23] MEDS ORDERED: ASPIRIN 81 MG TAB.CHEW PO SCH (09:00)
[2018-11-23] MEDS ORDERED: LABETALOL 200 MG TAB PO SCH (09:00)
[2018-11-23] MEDS: NIFEdipine 90 MG TABER PO SCH ×2 (09:38→20:24)
--- NOTE | 2018-11-23 09:50 | NUR ---
3-way Lin cath 16Fr/30ml inserted at this time with continuous NS irrigation. Cath draining clear pale yellow urine, no bladder distention. Pt awake, alfredo tx well, call light within reach. Will cont to monitor.
[2018-11-23] MEDS ORDERED: LISINOPRIL 10 MG TAB PO SCH (10:30)
[2018-11-23] MEDS: MORPHINE SULFATE 4 MG/ML SYR IVP PRN ×4 (11:33→21:27)
--- NOTE | 2018-11-23 13:38 | NUR ---
PATIENT HAS BEEN SCREENED AND CATEGORIZED MODERATE NUTRITION RISK. PATIENT WILL BE SEEN WITHIN 3-5 DAYS OF ADMISSION. 11/26/18JESSENIA COSBY MBA, RD
--- NOTE | 2018-11-23 14:48 | NUR ---
Ativan admin: Pt c/o generalized anxiety about his medical problems. States that the pain is making him extremely anxious. Active listening & reassurance provided. Offered warm compress to lower abd, pt refused. Ativan administered.
--- NOTE | 2018-11-23 14:58 | NUR ---
3-way fowler cath discontinued at this time. No bleeding present. No bladder distention. Call light within reach. Pt requesting to speak with physician re: josie. Dr. Bustillo notified & will see pt.
--- NOTE | 2018-11-23 15:50 | NUR ---
Dr. Bustillo notified of current pain level of 8/10 to bladder. Pt restless & amb in hallway, wanting to speak with physician. Pt advised to rest in bed & reassured physician is notified.
--- NOTE | 2018-11-23 17:35 | NUR ---
Dr. Bustillo notified of BP reassessment post-catapress. Pt currently asymptomatic, resting in bed, no c/o discomfort, respirations even & nonlabored. No new orders at this time. Physician to see pt.
--- NOTE | 2018-11-23 18:30 | NUR ---
Pt sitting up im chair eating dinner, respirations even & nonlabored, no signs of distress. Call light within reach.
--- NOTE | 2018-11-23 19:10 | NUR ---
Report given to pm nurse Gretta.
--- NOTE | 2018-11-23 19:11 | NUR ---
RECEIVED BEDSIDE REPORT FROM BARELY RN. PT IS AAO X4. RESPIRATIONS ARE EQUAL AND UNLABORED. LUNG SOUNDS ARE CLEAR. SKIN IS INTACT. PT WITH WILLIAM PITTING EDEMA +2. PT IS AMBULATORY. IV TO LEFT FA 20G IVF INFUSING PER ORDERS. C/C HEMATURIA. PER NURSE PT IS NOW URINATING CLEAR YELLOW URINE. PLAN OF CARE DISCUSSED WITH PT. SAFETY MEASURES ARE IN PLACE. CALL LIGHT WITHIN REACH. WILL CONTINUE TO MONITOR.
[2018-11-23 19:49] LABS: ANION GAP 13.1 (8-16); CARBON DIOXIDE 27.1 mmol/L (21-32); CREATININE 1.6 mg/dL (0.7-1.3); POTASSIUM 3.2 mmol/L (3.5-5.1)
[2018-11-23] MEDS: LABETALOL 100 MG TAB PO SCH (20:22)
--- NOTE | 2018-11-23 20:22 | NUR ---
SCHEDULED MEDICATIONS GIVEN. PT TOLERATED WELL. VITAL SIGNS ARE STABLE. ALL NEEDS MET AT THIS TIME. WILL CONTINUE TO MONITOR. CALL LIGHT WITHIN REACH.
[2018-11-23] MEDS ORDERED: ATORVASTATIN 20 MG TAB PO SCH (21:00)
--- NOTE | 2018-11-23 22:20 | NUR ---
PATIENT SITTING ON CHAIR EATING A TURKEY SANDWICH. NO S/S OF DISTRESS. WILL CONTINUE TO MONITOR.
[2018-11-24] VITALS (7 sets, daily range): BP systolic 129–161; BP diastolic 76–95
--- NOTE | 2018-11-24 | NUR ---
VITAL SIGNS ARE STABLE. DENIES ANY SOB. ALL NEEDS MET AT THIS TIME. SAFETY MEASURES ARE IN PLACE. WILL CONTINUE TO MONITOR. CALL LIGHT WITHIN REACH.
[2018-11-24] MEDS: MORPHINE SULFATE 4 MG/ML SYR IVP PRN ×4 (00:28→09:51)
--- NOTE | 2018-11-24 01:30 | NUR ---
PATIENT IS SLEEPING COMFORTABLY IN BED. RESPIRATIONS ARE EQUAL AND UNLABORED SAFETY MEASURES ARE IN PLACE. CALL LIGHT WITHIN REACH.
--- NOTE | 2018-11-24 03:34 | NUR ---
VITAL SIGNS ARE STABLE: 148/81 HR 101 99% RA, 98.9, 16 PAIN 8/10 MORPHINE GIVEN PER ORDERS. LEVAQUIN NOW INFUSING PER ORDERS. CALL LIGHT WITHIN REACH. WILL CONTINUE TO MONITOR.
[2018-11-24] MEDS: LEVOFLOXACIN 500 MG/D5W PREMIX 100 ML IV SCH (03:37)
[2018-11-24] MEDS: HYDROcodone/APAP 10/325 MG 1 TAB TAB PO SCH ×7 (04:00→23:27)
[2018-11-24] MEDS: cloNIDine 0.1 MG TAB PO SCH ×3 (06:21→23:27)
[2018-11-24] MEDS: BLOOD GLUCOSE MONITORING 1 DEV DEV FS SCH ×4 (06:32→20:44)
--- NOTE | 2018-11-24 07:29 | NUR ---
GAVE BEDSIDE REPORT TO SITA HILLIARD. PT ENDORSED IN STABLE CONDITION.
--- NOTE | 2018-11-24 07:30 | NUR ---
RECEIVED BEDSIDE REPORT FROM BABAK BAJWA. PATIENT ON TELE MONITOR AND CONTACT PRECAUTIONS FOR HX ESBL IN URINE. PATIENT AAOX4 AND ON ROOM AIR, NO DISTRESS NOTED. SKIN INTACT. PITTING EDEMA ON BLE AND BUE. PATIENT AMBULATORY AND CONTINENT. IV ON L FA 20 G INFUSING NS AT 20, IV ASYMPTOMATIC PATENT AND INTACT. BED IN LOW POSITION, CALL LIGHT WITHIN REACH, SIDE RAILS X 2 UP
[2018-11-24] MEDS: LABETALOL 100 MG TAB PO SCH ×2 (08:18→20:45)
[2018-11-24] MEDS: LISINOPRIL 20 MG TAB PO SCH (08:18)
[2018-11-24] MEDS: NIFEdipine 90 MG TABER PO SCH ×2 (08:19→20:46)
[2018-11-24] MEDS: LACTOBACILLUS RHAMNOSUS GG 1 EACH CAP PO SCH (08:19)
--- NOTE | 2018-11-24 08:21 | NUR ---
ADMINISTERED SCHEDULED MEDS. PATIENT TOLERATED WELL Addendum: 11/24/18 at 1029 by Patience Daily RN ANTOINETTE Mike 3.2
[2018-11-24 08:49] LABS: BASOPHILS % (AUTO) 0.5 % (0.0-2.0); EOSINOPHILS # (AUTO) 0.4 K/uL (0-0.4); EOSINOPHILS % (AUTO) 4.8 % (0.0-4.0); HEMATOCRIT 34.6 % (36-52); HEMOGLOBIN 11.9 g/dL (12.0-18.0); LYMPHOCYTES # (AUTO) 1.2 K/uL (2.0-11.5); LYMPHOCYTES % (AUTO) 15.8 % (20.5-51.1); MEAN CORPUSCULAR HEMOGLOBIN 32 pg (27-31); MEAN CORPUSCULAR HGB CONC 34 g/dL (33-37); MONOCYTES # (AUTO) 0.8 K/uL (0.8-1.0); MONOCYTES % (AUTO) 10.7 % (1.7-9.3); NEUTROPHILS # (AUTO) 5.1 K/uL (1.8-7.7); NEUTROPHILS % (AUTO) 68.2 % (42.2-75.2); PLATELET COUNT (AUTO) 250 K/uL (140-450); RED BLOOD CELL COUNT(AUTO) 3.76 MIL/uL (4.20-6.10); RED CELL DISTRIBUTION WIDTH 14.9 % (11.6-13.7); WHITE BLOOD COUNT (AUTO) 7.5 K/uL (4.8-10.8)
[2018-11-24 08:59] LABS: ANION GAP 11.6 (8-16); CARBON DIOXIDE 28.6 mmol/L (21-32); CREATININE 1.4 mg/dL (0.7-1.3); POTASSIUM 3.2 mmol/L (3.5-5.1)
[2018-11-24] MEDS: FUROSEMIDE 40 MG/4 ML VIAL IVP SCH (09:00)
--- NOTE | 2018-11-24 11:27 | NUR ---
BLOOD SUGAR OF 151. WILL ADMINISTER INSULIN PER SLIDING SCALE
[2018-11-24] MEDS: INSULIN LISPRO SLIDING SCALE 100 UNITS/ML VIAL SUBQ PRN ×2 (11:35→20:51)
[2018-11-24 13:38] LABS: T4 (THYROXINE) 6.1 ug/dL (4.5-12.0)
--- NOTE | 2018-11-24 13:43 | NUR ---
PATIENT WATCHING TV, ON ROOM AIR, NO DISTRESS NOTED
[2018-11-24] MEDS: MORPHINE SULFATE 2 MG/ML SYR IVP PRN ×2 (14:19→20:20)
[2018-11-24] MEDS ORDERED: POTASSIUM CHLORIDE 10 MEQ TABER PO SCH (14:30)
--- NOTE | 2018-11-24 16:21 | NUR ---
PATIENT SLEEPING, ON ROOM AIR, NO DISTRESS NOTED
--- NOTE | 2018-11-24 18:23 | NUR ---
PATIENT EATING DINNER, ON ROOM AIR, NO DISTRESS NOTED
--- NOTE | 2018-11-24 19:29 | NUR ---
BEDSIDE REPORT GIVEN TO BABAK WOLF. PATIENT ENDORSED IN STABLE CONDITION
--- NOTE | 2018-11-24 19:30 | NUR ---
ASSUMED CARE OF PATIENT, AWAKE, ALERT AND ORIENTED. NO COMPLAINS. CALL LIGHT WITHIN REACH. CARE BOARD UPDATED. NO DISTRESS.
--- NOTE | 2018-11-24 20:00 | NUR ---
VITAL SIGNS STABLE. AFEBRILE. PLAN OF CARE DISCUSSED WITH PATIENT, VERBALIZED UNDERSTANDING WELL. CALL LIGHT WITHIN REACH.
[2018-11-24] MEDS ORDERED: ATORVASTATIN 20 MG TAB PO SCH (21:00)
--- NOTE | 2018-11-24 21:00 | NUR ---
DUE MEDS GIVEN. HS SNACK GIVEN. NO COMPLAINS. CALL LIGHT WITHIN REACH.
--- NOTE | 2018-11-24 23:38 | NUR ---
VITAL SIGNS STABLE. AFEBRILE. CALL LIGHT WITHIN REACH. NO COMPLAINS.
[2018-11-25] MEDS: MORPHINE SULFATE 2 MG/ML SYR IVP PRN ×2 (00:24→04:40)
[2018-11-25] MEDS: LEVOFLOXACIN 500 MG/D5W PREMIX 100 ML IV SCH (02:06)
[2018-11-25] MEDS: HYDROcodone/APAP 10/325 MG 1 TAB TAB PO SCH ×3 (04:04→12:00)
[2018-11-25 04:18] VITALS: BP 95/71
--- NOTE | 2018-11-25 04:20 | NUR ---
SITTING IN THE CHAIR. DUE MEDS GIVEN. VITAL SIGNS STABLE. CALL LIGHT WITHIN REACH. AFEBRILE.
[2018-11-25] MEDS: BLOOD GLUCOSE MONITORING 1 DEV DEV FS SCH ×2 (06:04→12:24)
[2018-11-25] MEDS: cloNIDine 0.1 MG TAB PO SCH (06:08)
--- NOTE | 2018-11-25 06:26 | NUR ---
SLEEPING IN CHAIR, TOLD PATIENT TO LAY DOWN IN BED FOR SAFETY. [id number]. CALL LIGHT WITHIN REACH.
--- NOTE | 2018-11-25 07:16 | NUR ---
ENDORSED CARE AT BEDSIDE WITH ETHEL RN, PATIENT IN STABLE CONDITION.
--- NOTE | 2018-11-25 07:17 | NUR ---
RECEIVED BEDSIDE REPORT FROM BABAK WOLF. PATIENT ON TELE MONITOR AND CONTACT PRECAUTIONS IN PLACE FOR HX ESBL IN URINE. SKIN INTACT. PATIENT AMBULATORY AND CONTINENT. PITTING EDEMA ON BLE. IV ON L FA 20 G INFUSING NS AT 20, IV ASYMPTOMATIC PATENT AND INTACT. BED IN LOW POSITION, CALL LIGHT WITHIN REACH, SIDE RAILS X2 UP
[2018-11-25 08:00] VITALS: BP 129/74
[2018-11-25] MEDS: NIFEdipine 90 MG TABER PO SCH (08:24)
[2018-11-25] MEDS: LACTOBACILLUS RHAMNOSUS GG 1 EACH CAP PO SCH (08:24)
[2018-11-25] MEDS: LISINOPRIL 20 MG TAB PO SCH (08:25)
[2018-11-25] MEDS: LABETALOL 100 MG TAB PO SCH (08:25)
--- NOTE | 2018-11-25 08:28 | NUR ---
ADMINISTERED SCHEDULED MEDS TO PATIENT. PATIENT TOLERATED WELL
[2018-11-25] MEDS ORDERED: ECOTRIN 81 MG TABEC PO SCH (09:00)
[2018-11-25 09:56] LABS: ANION GAP 13.6 (8-16); CREATININE 1.4 mg/dL (0.7-1.3); POTASSIUM 3.6 mmol/L (3.5-5.1)
[2018-11-25 10:00] LABS: PHOSPHORUS 3.4 mg/dL (2.5-4.9)
[2018-11-25 10:16] LABS: BASOPHILS % (AUTO) 0.3 % (0.0-2.0); EOSINOPHILS # (AUTO) 0.4 K/uL (0-0.4); EOSINOPHILS % (AUTO) 3.7 % (0.0-4.0); HEMATOCRIT 35.7 % (36-52); HEMOGLOBIN 12.3 g/dL (12.0-18.0); LYMPHOCYTES % (AUTO) 9.9 % (20.5-51.1); MEAN CORPUSCULAR HEMOGLOBIN 31 pg (27-31); MEAN CORPUSCULAR HGB CONC 34 g/dL (33-37); MEAN CORPUSCULAR VOLUME 91.1 fL (80-94); MONOCYTES # (AUTO) 0.9 K/uL (0.8-1.0); MONOCYTES % (AUTO) 8.7 % (1.7-9.3); NEUTROPHILS # (AUTO) 7.9 K/uL (1.8-7.7); NEUTROPHILS % (AUTO) 77.4 % (42.2-75.2); PLATELET COUNT (AUTO) 259 K/uL (140-450); RED BLOOD CELL COUNT(AUTO) 3.92 MIL/uL (4.20-6.10); RED CELL DISTRIBUTION WIDTH 14.5 % (11.6-13.7); WHITE BLOOD COUNT (AUTO) 10.2 K/uL (4.8-10.8)
[2018-11-25] MEDS ORDERED: TRA100 PO (10:27)
[2018-11-25] MEDS ORDERED: ATOR20TA40 PO (10:27)
[2018-11-25] MEDS ORDERED: ASPI-1173 PO (10:27)
[2018-11-25] MEDS ORDERED: LISI-420 PO (10:27)
[2018-11-25] MEDS ORDERED: CLON0.1T42 PO (10:27)
[2018-11-25] MEDS ORDERED: LEVO750T2 PO (10:27)
[2018-11-25] MEDS ORDERED: MORPHINE SULFATE 2 MG/ML SYR IVP PRN (10:40)
[2018-11-25] MEDS ORDERED: ACET-787 PO (10:43)
--- NOTE | 2018-11-25 11:13 | NUR ---
PATIENT SITTING ON SIDE OF BED WATCHING TV, ON ROOM AIR, NO DISTRESS NOTED
[2018-11-25] MEDS: FUROSEMIDE 40 MG/4 ML VIAL IVP SCH (12:26)
--- NOTE | 2018-11-25 12:35 | NUR ---
ADMINISTERED MORPHINE PRN FOR 02/04 PAIN. BP 145/86 AND HR 98
[2018-11-25] MEDS ORDERED: GLIP5TER PO (13:21)
[2018-11-25] MEDS ORDERED: INFLUENZA VIRUS VACCINE QUAD 0.5 ML SYR IMVAC PRN (13:55)
--- NOTE | 2018-11-25 14:20 | NUR ---
PATIENT WATCHING TV, ON ROOM AIR, NO DISTRESS NOTED
--- NOTE | 2018-11-25 16:15 | NUR ---
DISCHARGE INSTRUCTIONS PROVIDED TO PATIENT. PATIENT RECEIVED FLU VACCINE. REMOVED WRIST BAND AND IV, IV TIP INTACT. SKIN INTACT. PATIENT AWARE MEDICATIONS ELECTRONICALLY SENT TO PHARMACY. APPOINTMENT DATE PROVIDED TO PATIENT AND PATIENT VERBALIZED UNDERSTANDING. EXCUSE NOTE FOR WORK PROVIDED TO PATIENT. INSTRUCTED TO RETURN TO NEAREST ER IF EXPERIENCES SOB, FEVER, PAIN, ETC.
[2018-11-27 20:25] LABS: CHLAMYDIA TRACHOMATIS AMP DNA Negative (Negative)
== END 2018-11-25 16:15 | disposition home or self-care (01) | DRG 194 ==
LOC: MED 20:15 → MTU 11-23 00:16
PROVIDERS: ADMIT General Practice; ATTEND General Practice
DX: I13.0 Hypertensive heart and chronic kidney disease with heart failure and stage 1 through stage 4 chronic kidney disease, or unspecified chronic kidney disease (principal); N17.0 Acute kidney failure with tubular necrosis; N12 Tubulo-interstitial nephritis, not specified as acute or chronic; E11.65 Type 2 diabetes mellitus with hyperglycemia; N30.90 Cystitis, unspecified without hematuria; N28.1 Cyst of kidney, acquired; I50.43 Acute on chronic combined systolic (congestive) and diastolic (congestive) heart failure; I24.9 Acute ischemic heart disease, unspecified; E11.9 Type 2 diabetes mellitus without complications; D64.9 Anemia, unspecified; N30.91 Cystitis, unspecified with hematuria; E87.6 Hypokalemia; N41.9 Inflammatory disease of prostate, unspecified; G47.00 Insomnia, unspecified; N18.9 Chronic kidney disease, unspecified; E66.9 Obesity, unspecified; E78.5 Hyperlipidemia, unspecified; I16.0 Hypertensive urgency; Z88.8 Allergy status to other drugs, medicaments and biological substances; Z68.36 Body mass index [BMI] 36.0-36.9, adult; Z91.19 Patient's noncompliance with other medical treatment and regimen; Z23 Encounter for immunization
CPT/HCPCS: 36415; 71045; 80048; 80053; 80305; 81001; 82948; 83036; 83605; 83735; 83880; 84100; 84134; 84436; 84443; 84484; 85025; 85379; 85610; 85730; 87040; 87081; 87086; 87491; 93005; 93970; 96365; 96375; 96376; 99285; J0696; J1170; J1644; J1815; J1940; J1956; J2001; J2060; J2270; J2405; J3480; J7030; Q0092

== ENCOUNTER 2019-01-04 17:52 | Emergency (ER) | payer MEDICAID ==
[~2019-01-04] VITALS: Ht 170.2 cm; Wt 112.5 kg
[~2019-01-04 17:52] MED LIST changes: +ACET-787 PO; +ASPI-1173 PO; -ASPI81EC98 PO; +ATOR20TA40 PO; +CLON0.1T42 PO; -CLON0.2T43 PO; -GLIM2TAB PO; +GLIP5TER PO; -HYDR-5092 PO; -INSU100S22 SUBQ; +LEVO750T2 PO; +LISI-420 PO; -NITR100C7 PO; +TRA100 PO; -TRA200 PO; -ZOLP10TA1 PO
[2019-01-04 17:55] VITALS: BP 153/102
[2019-01-04] MEDS ORDERED: NITROGLYCERIN 2% 1 GM PKT TP ONE (18:20)
[2019-01-04] MEDS ORDERED: FUROSEMIDE 40 MG/4 ML VIAL IVP ONE (18:20)
--- NOTE | 2019-01-04 18:30 | NUR ---
Note giuseppe in EDM - 01/04/19 at 1835 by PING PT REFUSED IV, HE NO LONGER WANTS TO BE TREATED IN THE ER DUE TO RECENT EXPERIENCE AND STRESSORS OF HOSPITALIZATION. EDUCATED PT ON BENEFITS OF TESTING AND TREATMENT AND HE CONTINUES TO WANT TO LEAVE. DR. AYON MADE AWARE, AND IS AT THE BEDSIDE NOW DISCUSSING OPTIONS WITH THE PT.
--- NOTE | 2019-01-04 18:33 | NUR ---
PT REFUSING EKG AT THIS TIME. RN AND MD MADE AWARE.
[2019-01-04 18:37] LABS: BASOPHILS % (AUTO) 0.3 % (0.0-2.0); EOSINOPHILS # (AUTO) 0.2 K/uL (0-0.4); EOSINOPHILS % (AUTO) 2.6 % (0.0-4.0); HEMATOCRIT 34.8 % (36-52); HEMOGLOBIN 11.7 g/dL (12.0-18.0); LYMPHOCYTES # (AUTO) 1.5 K/uL (2.0-11.5); MEAN CORPUSCULAR HEMOGLOBIN 31 pg (27-31); MEAN CORPUSCULAR HGB CONC 34 g/dL (33-37); MEAN CORPUSCULAR VOLUME 91.4 fL (80-94); MONOCYTES # (AUTO) 0.7 K/uL (0.8-1.0); MONOCYTES % (AUTO) 11.3 % (1.7-9.3); NEUTROPHILS % (AUTO) 62.8 % (42.2-75.2); PLATELET COUNT (AUTO) 243 K/uL (140-450); RED BLOOD CELL COUNT(AUTO) 3.81 MIL/uL (4.20-6.10); RED CELL DISTRIBUTION WIDTH 15.1 % (11.6-13.7); WHITE BLOOD COUNT (AUTO) 6.4 K/uL (4.8-10.8)
--- NOTE | 2019-01-04 18:47 | NUR ---
Patient does not wish to proceed with medical care recommended by DR. AYON. Patient given information related to possible complications, up to and including , which could occur as a result of leaving hospital at this time. Patient verbalizes understanding of risks involved leaving against medical advice. Patient has signed AMA form.
[2019-01-04 18:51] LABS: PROTHROMBIN TIME 10.4 secs (10.8-13.4)
[2019-01-04 18:52] LABS: ALBUMIN 2.8 g/dL (3.4-5.0); ANION GAP 11.8 (8-16); CREATININE 1.4 mg/dL (0.7-1.3); TOTAL BILIRUBIN 0.4 mg/dL (0.0-1.0)
[2019-01-04 18:59] LABS: POTASSIUM 2.8 mmol/L (3.5-5.1)
--- NOTE | 2019-01-04 19:03 | NUR ---
LAB REPORTED CRITICAL LAB POTASSIUM 2.8---PT AMA PRIOR TO RESULTS NOTIFIED
--- NOTE | 2019-01-04 19:06 | NUR ---
I CALLED PT ON HIS CELL PHONE LISTED---INFORMED HIM OF HIS POTASSIUM LEVEL . HE WILL TAKE HIS POTASSIUM SUPPLEMENT PER PT---
== END 2019-01-04 18:47 | disposition left against medical advice (07) ==
LOC: MED 17:52
DX: R06.02 Shortness of breath (principal); R05 Cough; J45.909 Unspecified asthma, uncomplicated; E11.9 Type 2 diabetes mellitus without complications; I10 Essential (primary) hypertension; Z79.82 Long term (current) use of aspirin; Z79.84 Long term (current) use of oral hypoglycemic drugs; Z79.899 Other long term (current) drug therapy; Z91.018 Allergy to other foods; Z88.8 Allergy status to other drugs, medicaments and biological substances
CPT/HCPCS: 36415; 80053; 83605; 83880; 84484; 85025; 85610; 85730; 87040; 99283; J1940

== ENCOUNTER 2019-02-11 11:29 | Emergency (ER) | payer MEDICAID ==
[~2019-02-11] VITALS: Ht 170.2 cm; Wt 104.5 kg
[2019-02-11 11:43] VITALS: BP 148/100
--- NOTE | 2019-02-11 14:00 | NUR ---
PATIENT TAKEN TO ER CHAIR Gretel
--- NOTE | 2019-02-11 14:08 | NUR ---
PT IS A 48 Y/O MALE WHO PRESENTS TO THE ED C/O FOOT PAIN. PT STATES THAT HE HAS NEUROPATHY AND RAN OUT OF GABAPENTIN RX ON SATURDAY. PT REPORTS 10/10 BURNING/NUMBING/TINGLING PAIN ON BILATERAL FEET AND IN PENIS. PT DENIES CP, SOB, N/V/D. PT AWAKE AND ALERT, RR EVEN/UNLABORED. PT REPOSITIONED FOR COMFORT, PT SITTING IN CHAIR. ER PROVIDER NOTIFIED. WILL CONTINUE TO MONITOR. MEDHX:HTN, DM RX:GABAPENTIN, CLONIDINE, LABETALOL, LASIX
[2019-02-11] MEDS ORDERED: HYDROcodone/APAP 5/325 MG 1 TAB TAB PO ONE (14:10)
[2019-02-11 14:42] VITALS: BP 138/88
--- NOTE | 2019-02-11 14:42 | NUR ---
Patient discharged with v/s stable. Written and verbal after care instructions given and explained. Patient alert, oriented and verbalized understanding of instructions. Ambulatory with steady gait. All questions addressed prior to discharge. ID band removed. Patient advised to follow up with PMD. Rx of LASIX 40MG AND GABAPENTIN 600MG given. Patient educated on indication of medication including possible reaction and side effects. Opportunity to ask questions provided and answered.
== END 2019-02-11 14:42 | disposition home or self-care (01) ==
LOC: MED 11:29
DX: E11.40 Type 2 diabetes mellitus with diabetic neuropathy, unspecified (principal); I10 Essential (primary) hypertension; J45.909 Unspecified asthma, uncomplicated; Z88.6 Allergy status to analgesic agent; Z88.8 Allergy status to other drugs, medicaments and biological substances; Z91.018 Allergy to other foods; Z79.84 Long term (current) use of oral hypoglycemic drugs; Z79.82 Long term (current) use of aspirin; Z79.899 Other long term (current) drug therapy; Z79.2 Long term (current) use of antibiotics; Z79.1 Long term (current) use of non-steroidal anti-inflammatories (NSAID)
CPT/HCPCS: 81002; 99283

== ENCOUNTER 2019-07-17 16:40 | Inpatient (IN) | payer MEDICAID ==
[~2019-07-17] VITALS: Ht 170.2 cm; Wt 109.8 kg
[2019-07-17 16:59] VITALS: BP 151/88
--- NOTE | 2019-07-17 17:10 | NUR ---
49 YEAR OLD MALE STATES THAT HE HAD BLOOD SUGAR OF 528 PRIOR TO ARRIVAL. PATIENT STATES HEADACHE 9/10, NAUSEA, AND VOMITTING X 2 DAYS. PATIENT STATE THAT HE FELL TODAY 2X. PATIENT ALERT AND ORIENTED, BREATHING EVEN AND UNLABORED, SKIN WARM AND DRY. BED IN LOWEST POSITION, LOCKED, BED RAIL UPX1.
--- NOTE | 2019-07-17 17:10 | NUR ---
PATIENT BLOOD SUGAR 527
[2019-07-17] MEDS ORDERED: NACL 0.9% 1,000 ML IV ONE ×2 (17:15→19:05)
[2019-07-17] MEDS ORDERED: ACETAMINOPHEN 325 MG TAB PO ONE (17:50)
--- NOTE | 2019-07-17 17:58 | NUR ---
PATIENT STATES 9/10 HEADACHE, DID NOT WANT ACETAMINOPHEN BECAUSE HE TOOK 1-[address] DIANA NOTIFIED AND AWARE. WILL SEE PATIENT AT BEDSIDE.
[2019-07-17] MEDS ORDERED: diphenhydrAMINE 50 MG/ML VIAL IVP ONE (18:20)
[2019-07-17] MEDS ORDERED: METOCLOPRAMIDE 10 MG/2 ML INJ VIAL IVP ONE (18:20)
--- NOTE | 2019-07-17 18:45 | NUR ---
PT TAKEN TO CT VIA WHEELCHAIR
[2019-07-17] MEDS ORDERED: fentaNYL 0.05 MG/ML VIAL IVP ONE ×2 (19:05→20:55)
--- NOTE | 2019-07-17 19:07 | NUR ---
BEDSIDE REPORT RECIEVED FROM BABAK OCONNOR. ASSUMED CARE AT THIS TIME.
[2019-07-17 19:08] LABS: BASOPHILS # (AUTO) 0.1 K/uL (0.00-0.22); BASOPHILS % (AUTO) 0.6 % (0.0-2.0); EOSINOPHILS # (AUTO) 0.4 K/uL (0-0.4); EOSINOPHILS % (AUTO) 3.8 % (0.0-4.0); HEMATOCRIT 39.8 % (36-52); HEMOGLOBIN 13.7 g/dL (12.0-18.0); LYMPHOCYTES % (AUTO) 21.5 % (20.5-51.1); MEAN CORPUSCULAR HEMOGLOBIN 31 pg (27-31); MEAN CORPUSCULAR HGB CONC 34 g/dL (33-37); MEAN CORPUSCULAR VOLUME 90.1 fL (80-94); MONOCYTES # (AUTO) 0.6 K/uL (0.8-1.0); MONOCYTES % (AUTO) 5.9 % (1.7-9.3); NEUTROPHILS # (AUTO) 6.3 K/uL (1.8-7.7); NEUTROPHILS % (AUTO) 68.2 % (42.2-75.2); PLATELET COUNT (AUTO) 282 K/uL (140-450); RED BLOOD CELL COUNT(AUTO) 4.42 MIL/uL (4.20-6.10); RED CELL DISTRIBUTION WIDTH 14.3 % (11.6-13.7); WHITE BLOOD COUNT (AUTO) 9.3 K/uL (4.8-10.8)
--- NOTE | 2019-07-17 19:30 | NUR ---
ELEVATED BP OF 183/103 WITH PAIN LEVEL OF 8/10. DR. DIANA NOTIFIED.
[2019-07-17 19:44] LABS: APPEARANCE,URINE CLEAR (CLEAR); BILIRUBIN,URINE NEGATIVE (NEGATIVE); BLOOD, URINE NEGATIVE (NEGATIVE); COLOR,URINE YELLOW (YELLOW); LEUKOCYTE ESTERASE ,URINE NEGATIVE (NEGATIVE); NITRITE, URINE NEGATIVE (NEGATIVE); PH,URINE 6.5 (5.0-9.0); UGLUCOSE 3+ (NEGATIVE)
--- NOTE | 2019-07-17 19:46 | NUR ---
BP DECREASED TO 179/86. PT REPORTS DECREASED PAIN LEVEL AFTER MEDICATION ADMINISTRATION.
[2019-07-17 19:51] LABS: ALBUMIN 4.1 g/dL (3.4-5.0); ANION GAP 17.7 (8-16); CARBON DIOXIDE 26.9 mmol/L (21-32); CREATININE 3.8 mg/dL (0.7-1.3); TOTAL BILIRUBIN 0.7 mg/dL (0.0-1.0)
[2019-07-17 19:54] LABS: RBC,URINE NONE SEEN /HPF (0-5); WBC,URINE NONE SEEN /HPF (0-5)
[2019-07-17 19:57] LABS: POTASSIUM 2.6 mmol/L (3.5-5.1)
--- NOTE | 2019-07-17 20:30 | NUR ---
DR. LÓPEZ MADE AWARE OF PT CRITICAL LABS. NO NEW ORDERS RECEIVED AT THIS TIME.
--- NOTE | 2019-07-17 20:45 | NUR ---
PT REPORTS INCREASE IN PAIN LEVEL, 8/[address] PLAOMINO MADE AWARE.
[2019-07-17] MEDS ORDERED: DOCUSATE SODIUM 100 MG GELCAP PO PRN (21:05)
[2019-07-17] MEDS ORDERED: ACETAMINOPHEN 325 MG TAB PO PRN (21:05)
[2019-07-17] MEDS ORDERED: HYDROcodone/APAP 5/325 MG 1 TAB TAB PO PRN (21:05)
[2019-07-17] MEDS ORDERED: ONDANSETRON 4 MG/2 ML VIAL IM/IVP PRN (21:05)
[2019-07-17] MEDS ORDERED: DEXTROSE 50% 50 ML SYR IVP PRN (21:10)
--- NOTE | 2019-07-17 21:40 | NUR ---
PT REPORTS DECREASED PAIN, 4/10.
--- NOTE | 2019-07-17 21:50 | NUR ---
Patient will be admitted to care of Dr. Phelps. Admited to [facility]. Will go to room 112B Belongings list completed. VSS at time of transport. Report to BABAK Yarbrough. Transfer of care at this time.
[2019-07-17 21:59] LABS: PROTHROMBIN TIME 9.2 secs (10.8-13.4)
[2019-07-17 22:00] VITALS: BP 146/97
[2019-07-17] MEDS ORDERED: KCL 20 MEQ/WATER INJ PREMIX 200 ML IV ONE (22:00)
--- NOTE | 2019-07-17 22:00 | NUR ---
PT WAS BROUGHT UP BY MILAGROS TO ROOM 112, ESCORTED BY GUILLERMINA MINA AND SONIA ROCKBOARD LATHER NURSE. PT AMBULATED INDEPENDENTLY TO BED B. PT HAS IV SITE 22 IN RH HAND. PT IS RUNNING 2ND IV BOLUS OF 1 LITERS OF N/S. PT IS AOX4, AND SKIN INTACT. REPORT GIVEN AT BEDSIDE BY SONIA HILLIARD . MRSA SWAB COLLECTED AND V/S A FOLLOWS: T 98.5 P 70 R 18 B/P 146/97 02 915 ON ROOM AIR. PT WAS ADMITTED TO TELEMETRY. ADMIT STRIP IS 72 NSR. UNIVERSAL F[place]S PRECAUTIONS IN PLACE.
[2019-07-17 22:12] LABS: BARBITURATE, URINE NEG. ng/ml (NEG <=200); BENZODIAZEPINE, URINE NEG. ng/mL (NEG <=200); CANNABINOID, URINE NEG. ng/mL (NEG <=50); COCAINE, URINE NEG. ng/mL (NEG <=300); OPIATE, URINE NEG. ng/mL (NEG <=2000); PHENCYCLIDINE SCREEN,URINE NEG. ng/mL (NEG <=25)
[2019-07-17] MEDS ORDERED: METO5TAB9 PO (22:16)
[2019-07-17] MEDS ORDERED: GABA300C PO (22:16)
[2019-07-17] MEDS ORDERED: TRA100 PO (22:16)
[2019-07-17] MEDS ORDERED: METF1000 PO (22:16)
[2019-07-17] MEDS ORDERED: CLON0.1T42 PO (22:16)
[2019-07-17 22:22] LABS: CHOL/HDL RATIO 8.3 (1-4.5); MAGNESIUM 1.9 mg/dL (1.8-2.4); PHOSPHORUS 5.1 mg/dL (2.5-4.9); THYROID STIMULATING HORMONE 2.59 uIU/mL (0.34-3.74)
--- NOTE | 2019-07-17 22:50 | NUR ---
TEACHING DONE AT BEDSIDE REGARDING DM2. PT RECEPTIVE AND VERBALIZED UNDERSTANDING.
[2019-07-17] MEDS ORDERED: METOCLOPRAMIDE 10 MG/2 ML INJ VIAL IVP PRN (23:00)
--- NOTE | 2019-07-17 23:00 | NUR ---
PT GIVEN ORDERED CLONIDINE FOR HTN. HE ALSO RECEIVED ORDERED POTASSIUM IV FOR HYPOKALEMIA. PT FINGERSTICK IS 506, PT RECEIVED RECEIVED 10 UNITS OF HUMALOG COVERAGE. MD SKELTON MADE AWARE. [facility] CALLED AT 2240 WITH RESULTS OF LACTIC ACID 3.2 (WHICH IS STARTING TO TREND DOWN FROM 3.4. MD SKELTON MADE AWARE AND ORDERED REPEAT LACTIC ACID REDRAW. )
[2019-07-17] MEDS: INSULIN LISPRO SLIDING SCALE 100 UNITS/ML VIAL SUBQ PRN (23:15)
[2019-07-17] MEDS: cloNIDine 0.1 MG TAB PO SCH (23:24)
[2019-07-17] MEDS: ZOLPIDEM 5 MG TAB PO PRN (23:25)
[2019-07-17] MEDS: MORPHINE SULFATE 2 MG/ML SYR IVP PRN (23:28)
[2019-07-17] MEDS: LORazepam 2 MG/ML VIAL IM/IVP PRN (23:29)
--- NOTE | 2019-07-17 23:30 | NUR ---
PT APPEARS TO BE COMFORTABLE , BUT HE COMPLAINED OF SEVERE GENERALIZED PAIN, ANXIETY AND HE ALSO WANTS THE PRN FOR SLEEPING. PT WAS GIVEN 1 MG IVP MORPHINE AND 1MG IVP ATIVAN, WELL THE PO/PRN AMBIEN. V/S FOLLOWS: T 97.0 P 66 R 18 B/P 143/92 02 96% ON ROOM AIR. IV SITE INTACT AND RUNNING IV POTASSIUM AT 25MLS/HR ORDERED. MD SKELTON , REORDERED LAB DRAWS TO RETEST POTASSIUM.
[2019-07-17] MEDS: NACL 0.9% 1,000 ML IV SCH (23:35)
[2019-07-18] MEDS ORDERED: INSULIN LANTUS 100 UNITS/ML 10 ML VIAL SUBQ SCH ×3 (02:15→21:00)
--- NOTE | 2019-07-18 02:30 | NUR ---
MD SKELTON ORDERED 10 UNITS OF LANTUS COVERAGE WHICH WAS GIVEN TO PT AT BEDSIDE. ALSO RESTARTED A CCHO-60 DIET.
[2019-07-18 04:00] VITALS: BP 148/92
[2019-07-18] MEDS: MORPHINE SULFATE 2 MG/ML SYR IVP PRN ×4 (05:19→17:40)
[2019-07-18] MEDS: LORazepam 2 MG/ML VIAL IM/IVP PRN ×4 (05:19→17:41)
--- NOTE | 2019-07-18 05:30 | NUR ---
PT WOKE UP AND C/O OF SEVERE GENERALIZED PAIN, PT SAID THAT MORPHINE DID NOT HELP HIM, AND THAT HE SAID LAST TIME HE WAS HERE HE HAD DILAUDID AND THAT HE WANTS TH EDOCTOR TO ORDER 2MG DILAUDID IVP Q4HRS FOR PAIN. PT WAS REMINDED THAT AFTER HE TOOK THE MORPHINE AND OTHER PRN'S HE SLEPT SOUNDLY, SO HOW COULD HE KNOW IF THE PAIN MEDICATION WASN'T HELPFUL. ALSO THAT DILAUDID IS MORE POWERFUL THAN MORPHINE AND THAT THE DOCTORS DOES A STEP UP TO A HIGHER DOSE OF MEDICATION TO SEE IF THAT WORKS. PT WAS ENCOURAGED TO TAKE THE MORPHINE WHICH HE DID RELUCTANTLY. PT WAS REMINDED THAT IN THE AM THE PRIMARY MD'S DO THIER ROUNDS AND HE MAY SPEAK TO MD DE LEON WHO OVERSEES THE RESIDENT MD'S. PT TOOK THE MORPHINE AND THEN ASKED ABOUT SOMETHING TO EAT. PT WAS ENCOURAGE TO WAIT FOR THE FINGERSTICK DUE TO BS BEING SO HIGH. PT VERBALIZED UNDERSTANDING.
[2019-07-18] MEDS: INSULIN LISPRO SLIDING SCALE 100 UNITS/ML VIAL SUBQ PRN ×4 (06:49→20:52)
[2019-07-18] MEDS: cloNIDine 0.1 MG TAB PO SCH ×2 (06:51→15:23)
[2019-07-18] MEDS: BLOOD GLUCOSE MONITORING 1 DEV DEV FS SCH ×4 (06:53→20:48)
--- NOTE | 2019-07-18 07:00 | NUR ---
PT FINGERSTICK IS 449, HE WAS GIVEN 10 UNITS OF HUMALOG AND MD SKELTON MADE AWARE OF HIGH BLOOD SUGAR LEVEL. PT ALSO C/O OF PAIN NOT RELIEVED AND WAS OFFERED A NORCO PO/PRN, PT AGAIN TOOK RELUCTANTLY, HE CONTINUES TO REQUEST HEAVIER MEDS, MD SKELTON ORDERED AN US OF SOFT TISSUES DUE TO PT C/O OF PAIN IN NECK. AWAITING RESULTS. WILL ENDORSE POC TO RELIEVING RN .
--- NOTE | 2019-07-18 07:15 | NUR ---
RECEIVED REPORT FROM MACHINE PACKAGER NURSE. PATIENT SITTING DOWN IN BED, PAIN WITHIN TOLERABLE AT THIS TIME, NIGHT RN JUST GAVE NORCO A WHILE AGO. AAOX4, CALM, COOPERATIVE, SKIN COLOR APPROPRIATE TO ETHNICITY, WARM TO TOUCH. SKIN INTACT. RESPIRATIONS EVEN, UNLABORED, ON ROOM AIR. DENIES ANY NAUSEA/VOMITING. IV SITE INTACT, PATENT, AND INFUSING IVF PER MD ORDERS. REVIEWED PLAN OF CARE WITH PATIENT. PATIENT VERBALIZED UNDERSTANDING. SAFETY MEASURES IN PLACE, CALL LIGHT WITHIN REACH. WILL CONTINUE TO MONITOR.
[2019-07-18 08:00] VITALS: BP 150/95
[2019-07-18] MEDS ORDERED: CALCIUM ACETATE 667 MG TAB PO ONE (08:00)
[2019-07-18] MEDS ORDERED: INSULIN NPH HUM/REG INSULIN HM 100 UNIT/ML 10 ML VIAL SUBQ SCH (08:11)
[2019-07-18] MEDS: NACL 0.9% 1,000 ML IV SCH ×4 (08:21→22:49)
[2019-07-18] MEDS ORDERED: METOLAZONE 5 MG TAB PO SCH (09:00)
[2019-07-18] MEDS ORDERED: ATORVASTATIN 20 MG TAB PO SCH (09:00)
[2019-07-18] MEDS ORDERED: GABAPENTIN 300 MG CAP PO SCH (09:00)
[2019-07-18] MEDS ORDERED: ECOTRIN 81 MG TABEC PO SCH (09:00)
[2019-07-18] MEDS ORDERED: CALCIUM ACETATE 667 MG TAB PO SCH (09:18)
[2019-07-18] MEDS: GABAPENTIN 300 MG CAP PO SCH (09:32)
[2019-07-18] MEDS: BACLOFEN 10 MG TAB PO SCH ×3 (09:33→16:53)
[2019-07-18] MEDS: FENOFIBRATE 48 MG TAB PO SCH (09:33)
[2019-07-18] MEDS: LABETALOL 100 MG TAB PO SCH ×2 (09:34→20:40)
--- NOTE | 2019-07-18 09:45 | NUR ---
PATIENT COMPLAINS OF PAIN AND ANXIETY, MORPHINE AND ATIVAN GIVEN AT THIS TIME. OTHER SCHEDULED MEDICATIONS DUE GIVEN. WILL CONTINUE TO MONITOR.
[2019-07-18 09:59] LABS: BASOPHILS % (AUTO) 0.3 % (0.0-2.0); EOSINOPHILS # (AUTO) 0.4 K/uL (0-0.4); EOSINOPHILS % (AUTO) 5.3 % (0.0-4.0); HEMATOCRIT 37.5 % (36-52); HEMOGLOBIN 12.9 g/dL (12.0-18.0); LYMPHOCYTES # (AUTO) 1.3 K/uL (2.0-11.5); LYMPHOCYTES % (AUTO) 16.9 % (20.5-51.1); MEAN CORPUSCULAR HEMOGLOBIN 31 pg (27-31); MEAN CORPUSCULAR HGB CONC 35 g/dL (33-37); MEAN CORPUSCULAR VOLUME 90.6 fL (80-94); MONOCYTES # (AUTO) 0.6 K/uL (0.8-1.0); MONOCYTES % (AUTO) 7.7 % (1.7-9.3); NEUTROPHILS # (AUTO) 5.2 K/uL (1.8-7.7); NEUTROPHILS % (AUTO) 69.8 % (42.2-75.2); PLATELET COUNT (AUTO) 255 K/uL (140-450); RED BLOOD CELL COUNT(AUTO) 4.13 MIL/uL (4.20-6.10); RED CELL DISTRIBUTION WIDTH 14.2 % (11.6-13.7); WHITE BLOOD COUNT (AUTO) 7.4 K/uL (4.8-10.8)
[2019-07-18 10:05] LABS: MAGNESIUM 1.8 mg/dL (1.8-2.4); PHOSPHORUS 3.8 mg/dL (2.5-4.9)
[2019-07-18 10:57] LABS: ANION GAP 17.8 (8-16); CARBON DIOXIDE 25.8 mmol/L (21-32); CREATININE 3.5 mg/dL (0.7-1.3)
[2019-07-18 11:01] LABS: POTASSIUM 2.6 mmol/L (3.5-5.1)
[2019-07-18] MEDS ORDERED: POTASSIUM CHLORIDE 10 MEQ TABER PO SCH (11:44)
[2019-07-18 12:00] VITALS: BP 161/97
--- NOTE | 2019-07-18 12:29 | NUR ---
PATIENT SITTING IN BED WITH LUNCH TRAY IN FRONT. NO DISTRESS NOTED. PAIN WITHIN TOLERABLE. SCHEDULED MEDICATIONS DUE GIVEN. WILL CONTINUE TO MONITOR.
[2019-07-18] MEDS ORDERED: POTASSIUM CHLORIDE 40 MEQ, LIDOCAINE MPF 1% 25 MG in NACL 0.9% 250 ML IV SCH (13:00)
--- NOTE | 2019-07-18 13:46 | NUR ---
PATIENT SITTING IN BED WITH COMPLAINTS OF PAIN AND ANXIETY, MORPHINE AND ATIVAN GIVEN AT THIS TIME. WILL CONTINUE TO MONITOR.
--- NOTE | 2019-07-18 14:10 | NUR ---
PATIENT HAS BEEN SCREENED AND CATEGORIZED MODERATE NUTRITION RISK. PATIENT WILL BE SEEN WITHIN 3-5 DAYS OF ADMISSION. 07/20/19 - 07/22/19 JESSENIA COSBY MBA, RD
[2019-07-18 16:00] VITALS: BP 170/72
[2019-07-18] MEDS: MAG SULF 2000 MG/WATER PREMIX 100 ML IV SCH ×2 (16:53→19:25)
--- NOTE | 2019-07-18 17:48 | NUR ---
PATIENT SITTING IN BED WITH COMPLAINTS OF PAIN AND ANXIETY. MORPHINE AND ATIVAN GIVEN AT THIS TIME. OTHER SCHEDULED MEDICATIONS DUE GIVEN. WILL CONTINUE TO MONITOR.
[2019-07-18 18:07] LABS: APPEARANCE,URINE CLEAR (CLEAR); BILIRUBIN,URINE NEGATIVE (NEGATIVE); BLOOD, URINE TRACE-I (NEGATIVE); COLOR,URINE YELLOW (YELLOW); LEUKOCYTE ESTERASE ,URINE NEGATIVE (NEGATIVE); NITRITE, URINE NEGATIVE (NEGATIVE); PH,URINE 5.5 (5.0-9.0); UGLUCOSE 3+ (NEGATIVE)
[2019-07-18 18:19] LABS: HYALINE CASTS, URINE 0-10 /LPF (None Seen); RBC,URINE 0-5 /HPF (0-5); WBC,URINE 0-5 /HPF (0-5)
[2019-07-18 19:08] LABS: CARBON DIOXIDE 23.9 mmol/L (21-32)
[2019-07-18 19:09] LABS: ANION GAP 18.9 (8-16); CREATININE 3.1 mg/dL (0.7-1.3)
[2019-07-18 19:18] LABS: POTASSIUM 2.8 mmol/L (3.5-5.1)
--- NOTE | 2019-07-18 19:25 | NUR ---
RECEIVED FROM AM RN AWAKE AND ALERT, SITTING AT EDGE OF BED. SEEN PT. WHEN I WAS COMING IN FROM OUTSIDE TO CLOCK IN FOR WORK MANIPULATING HIS IV PUMP. STOPPED HIM AND SEEN PT. TRYING TO PRESS ALL BUTTONS. ADVISED HIM NOT TO DO THAT AND TO CALL NURSE IF IT IS BEEPING. " I WANT TO KNOW HOW IT WORKS " PER PT. REASONS FOR NOT MESSING WITH IV PUMP EXPLAINED TO HIM SPECIALLY WITH MEDICATIONS THAT NEEDS TO BE ADMINISTERED WITH HOW MANY ML PER HOUR. "OK" TELEMETRY MONITORING. CALL LIGHT WITH IN REACH AND ENCOURAGED TO USE CALL LIGHT IF HI IV ALARMS AND TO CALL ME FOR ANY PROBLEMS HE GOT. "OK"
--- NOTE | 2019-07-18 19:26 | NUR ---
GAVE REPORT TO XEROX MACHINE OPERATOR NURSE FOR CONTINUITY OF CARE. PATIENT IN STABLE CONDITION.
[2019-07-18 20:28] VITALS: BP 144/100
--- NOTE | 2019-07-18 20:53 | NUR ---
BLOOD SUGAR CHECK PER FINGERSTICK IS 409. RESIDENT MD PADRON AWARE AND STATED"JUST GIVE 10 UNITS OF HUMALOG"
--- NOTE | 2019-07-18 20:54 | NUR ---
PT. BEEN WALKING AND WALKING AROUND THE HALLWAY AND PER AM RN PT. TOLD ME EARLIER THAT HE KEEPS ASKING FOR DRINKS AND SNACKS. PT. GETS UPSET IF NOT GIVEN REQUESTED. DIABETIC EDUCATION GIVEN TO PT. AT THIS TIME AND DIET NEEDS TO BE FOLLOWED. "OK"
[2019-07-19 00:08] VITALS: BP 139/76
[2019-07-19] MEDS ORDERED: cloNIDine 0.1 MG TAB ONE (00:13)
[2019-07-19] MEDS: cloNIDine 0.1 MG TAB PO SCH ×4 (00:16→23:20)
[2019-07-19] MEDS: LORazepam 2 MG/ML VIAL IM/IVP PRN ×5 (00:44→18:45)
[2019-07-19] MEDS: MORPHINE SULFATE 2 MG/ML SYR IVP PRN ×6 (00:44→23:18)
[2019-07-19] MEDS: ZOLPIDEM 5 MG TAB PO PRN ×2 (02:09→23:19)
[2019-07-19] MEDS: NACL 0.9% 1,000 ML IV SCH ×3 (02:19→17:56)
--- NOTE | 2019-07-19 02:49 | NUR ---
PT. WOKE UP AND INSISTED THAT HE NEEDS TO TAKE HIS AMBIEN PILL. MEDICATED REQUESTED. PT. WENT BACK TO SLEEP AFTER.
[2019-07-19 04:00] VITALS: BP 173/63
[2019-07-19] MEDS: BLOOD GLUCOSE MONITORING 1 DEV DEV FS SCH ×4 (06:14→21:28)
[2019-07-19] MEDS: INSULIN LISPRO SLIDING SCALE 100 UNITS/ML VIAL SUBQ PRN ×4 (06:21→21:34)
[2019-07-19] MEDS ORDERED: hydrALAZINE 20 MG/ML VIAL IVP PRN (07:15)
--- NOTE | 2019-07-19 07:15 | NUR ---
RECEIVED FROM AIRPLANE DISPATCH CLERK NURSE AT BEDSIDE FOR CONTINUITY OF CARE, PT AWAKE AND ALERT, INITIAL ASSESSMENT DONE. UPDATED BOARD. IV SITE INTACT WITH IVF INFUSING WELL. CALL LIGHT WITHIN REACH, WILL CONTINUE TO MONITOR PATIENT.
[2019-07-19 08:00] VITALS: BP 158/70
--- NOTE | 2019-07-19 08:10 | NUR ---
DR JOHNSTON IN TO SPEAK TO THE PATIENT. WILL WAIT FOR NEW ORDERS.
[2019-07-19] MEDS ORDERED: POTASSIUM CHLORIDE 10 MEQ TABER PO SCH ×4 (08:24→23:30)
[2019-07-19 09:16] LABS: BASOPHILS % (AUTO) 0.7 % (0.0-2.0); EOSINOPHILS # (AUTO) 0.4 K/uL (0-0.4); EOSINOPHILS % (AUTO) 7.2 % (0.0-4.0); HEMATOCRIT 37.3 % (36-52); HEMOGLOBIN 12.8 g/dL (12.0-18.0); LYMPHOCYTES # (AUTO) 1.2 K/uL (2.0-11.5); LYMPHOCYTES % (AUTO) 20.3 % (20.5-51.1); MEAN CORPUSCULAR HEMOGLOBIN 31 pg (27-31); MEAN CORPUSCULAR HGB CONC 34 g/dL (33-37); MEAN CORPUSCULAR VOLUME 90.7 fL (80-94); MONOCYTES # (AUTO) 0.6 K/uL (0.8-1.0); MONOCYTES % (AUTO) 9.7 % (1.7-9.3); NEUTROPHILS # (AUTO) 3.6 K/uL (1.8-7.7); NEUTROPHILS % (AUTO) 62.1 % (42.2-75.2); PLATELET COUNT (AUTO) 251 K/uL (140-450); RED BLOOD CELL COUNT(AUTO) 4.11 MIL/uL (4.20-6.10); RED CELL DISTRIBUTION WIDTH 14.5 % (11.6-13.7); WHITE BLOOD COUNT (AUTO) 5.9 K/uL (4.8-10.8)
[2019-07-19 09:20] LABS: ANION GAP 12.8 (8-16); CARBON DIOXIDE 27.9 mmol/L (21-32); CREATININE 2.8 mg/dL (0.7-1.3)
[2019-07-19] MEDS: INSULIN LANTUS 100 UNITS/ML 10 ML VIAL SUBQ SCH (09:20)
--- NOTE | 2019-07-19 09:20 | NUR ---
ORDERED MEDICATIONS GIVEN. PATIENT TOLERATED THEM WELL. NO COMPLAINTS AT THIS TIME. PATIENT AWARE OF NEXT SCHEDULED PAIN MED. WILL CONTINUE TO MONITOR PATIENT.
[2019-07-19] MEDS: CALCIUM ACETATE 667 MG TAB PO SCH (09:22)
[2019-07-19] MEDS: LABETALOL 100 MG TAB PO SCH ×2 (09:23→21:29)
[2019-07-19] MEDS: FENOFIBRATE 48 MG TAB PO SCH (09:23)
[2019-07-19] MEDS: GABAPENTIN 300 MG CAP PO SCH (09:23)
[2019-07-19] MEDS: BACLOFEN 10 MG TAB PO SCH ×3 (09:24→17:01)
[2019-07-19 09:26] LABS: CHOL/HDL RATIO 7.4 (1-4.5); MAGNESIUM 2.2 mg/dL (1.8-2.4); PHOSPHORUS 3.4 mg/dL (2.5-4.9)
[2019-07-19 09:31] LABS: POTASSIUM 2.7 mmol/L (3.5-5.1)
[2019-07-19] MEDS ORDERED: CARISOPRODOL 350 MG TAB PO SCH (09:50)
[2019-07-19] MEDS ORDERED: METOCLOPRAMIDE 10 MG/2 ML INJ VIAL IVP PRN (10:10)
--- NOTE | 2019-07-19 10:45 | NUR ---
PT REQUESTED FOR PAIN MEDICATION, INFORMED PATIENT ABOUT NEW MEDICATION SOMA, PER REQUEST TO DOCTOR PRESTON. PATIENT STATED "WHERE'S MY MORPHINE, THAT'S WHAT WORKS", PATIENT REQUESTED FOR MORPHINE IVP TO BE BACK ON EMAR. SPOKE TO DR. JOHNSTON, PER PATIENT, PATIENT WANTED TO ATTEMPT SOMA INSTEAD OF MORPHINE. PATIENT NOW BACK TO ORIGINAL PAIN MANAGEMENT SCHEDULE. WILL GIVE PATIENT MEDICATION ONCE VERIFIED BY PHARMACY.
--- NOTE | 2019-07-19 10:51 | NUR ---
Safety Teacher Note: Basic Screen: Yes High Risk DC Screen Chewey: MARIA FERNANDA He Relationship: [id number] Pre-Admission Living Arrangements: Lives with Other Prior ADL Independent Current Home Health Name/Tel: N/A Current DME/02 Name/Tel: N/A Current Hospice Name/Tel: N/A Current Dialysis Name/Tel: N/A Healthcare Decision Maker: Patient Advance Directive No - REFUSED Patient/Family Have Educational Needs No Information Taught: Advance Directive Community Resources Person Taught: Patient Teaching Tools: Verbal Factors Affecting Learning: None Participation Level: Refused Evaluation: Verbalizes Understanding Needs Additional Education: No Discipline: Case Mgt/Social Svcs Tentative Discharge Plan/Destination: No Needs Identified Will require assistance post discharge: No Referred to Fuel Storage Technician: No Tentative Discharge Plan Summary: Patient is a 49-year-old male admitted for hyperglycemia and hypokalemia. Patient has PMHX of diabetes, hypertension, and asthma. Patient was admitted from home. SW met with patient at bedside to verify demographics. Patient reports no history of mental health and denied any substance abuse. SW offered patient substance abuse resources for opiate use, but patient refused. SW also provided education on advanced directive. Patient refused. Patient's tentative discharge plan is to return home. No further needs identified. Signature: JEREMI Hubbard Date: Jul 19, 2019 Time: 10:48
[2019-07-19 12:00] VITALS: BP 148/68
--- NOTE | 2019-07-19 13:08 | NUR ---
BLOOD SUGAR 321, COVERAGE GIVEN. PATIENT TOLERATED IT WELL. WILL CONTINUE TO MONITOR PATIENT.
[2019-07-19 16:20] VITALS: BP 185/89
--- NOTE | 2019-07-19 17:59 | NUR ---
BLOOD SUGAR 312, COVERAGE GIVEN. WILL CONTINUE TO MONITOR PATIENT.
[2019-07-19 18:50] LABS: ANION GAP 13.8 (8-16); CARBON DIOXIDE 27.1 mmol/L (21-32); CREATININE 2.5 mg/dL (0.7-1.3)
[2019-07-19 18:55] LABS: POTASSIUM 2.9 mmol/L (3.5-5.1)
--- NOTE | 2019-07-19 18:55 | NUR ---
PATIENT AMBULATED AROUND FLOOR. WILL CONTINUE TO MONITOR PATIENT.
--- NOTE | 2019-07-19 19:35 | NUR ---
REPORT GIVEN TO LEARNING SOLUTIONS SPECIALIST NURSE AT BEDSIDE FOR CONTINUITY OF CARE. PATIENT IN STABLE CONDITION.
--- NOTE | 2019-07-19 19:40 | NUR ---
RECEIVED FROM AM RN IN BED AWAKE AND ALERT. NO SOB. VERBALIZING WELL. WILL CONTINUE CARE FROM AM SHIFT. CALL LIGHT WITH IN REACH.
[2019-07-19] MEDS ORDERED: POTASSIUM CHLORIDE 40 MEQ, LIDOCAINE MPF 1% 25 MG in NACL 0.9% 250 ML IV ONE (20:55)
[2019-07-19] MEDS: INSULIN NPH HUM/REG INSULIN HM 100 UNIT/ML 10 ML VIAL SUBQ SCH (21:32)
[2019-07-19 21:42] VITALS: BP 173/100
[2019-07-19] MEDS ORDERED: KCL 20 MEQ/WATER INJ PREMIX 200 ML IV SCH (23:30)
--- NOTE | 2019-07-19 23:33 | NUR ---
PT. STILL AWAKE AT THIS TIME AND WANTING MORE FOOD. INFORMED HE HAS BEEN GIVEN SNACK EARLIER ALREADY. DEMANDING AT THIS TIME TO HAVE ATIVAN IVP, MORPHINE 4MG IVP AND AMBIEN AT THE SAME TIME. MEDICATED WITH AMBIEN AND MORPHINE AT THIS TIME. INFORMED HIM THAT I WILL GIVE ATIVAN IVP LATER , AT LEAST AN HOUR AFTER THESE 2 MEDS JUST ADMINISTERED. PT. STATED HE NEEDS IT NOW. ADVISED LATER. AGREED AND SAID HE WILL BE WAITING AND NOT SLEEP.
[2019-07-20] MEDS: LORazepam 2 MG/ML VIAL IM/IVP PRN ×5 (00:04→21:58)
[2019-07-20 00:36] VITALS: BP 156/89
[2019-07-20] MEDS: NACL 0.9% 1,000 ML IV SCH ×3 (01:29→14:49)
--- NOTE | 2019-07-20 02:46 | NUR ---
SLEEPING WELL. NO RESTLESSNESS. WAKES UP EASILY WHEN TOUCHED. KRIDER ORDERED BY RESIDENT MD INFUSING WELL . NO COMPLAINTS OF ANY PAIN.
[2019-07-20] MEDS: BLOOD GLUCOSE MONITORING 1 DEV DEV FS SCH ×4 (05:12→21:00)
[2019-07-20] MEDS: INSULIN LISPRO SLIDING SCALE 100 UNITS/ML VIAL SUBQ PRN ×4 (05:13→22:18)
--- NOTE | 2019-07-20 06:37 | NUR ---
SLEPT WELL THIS SHIFT POST PAIN MEDICATIONS . ABLE TO AMBULATE WELL . INDEPENDENT. PT. REFUSES TO ACCEPT ADVICE RE: EATING TOO MUCH. PER ROOM MATE, PT. ALWAYS ASK FOR FOOD FROM DIFFERENT PERSONNELS . RE-EDUCATED ALL THE TIME RE: ADHERENCE TO DIABETIC DIET. AWAKE AT THIS TIME. CALL LIGHT WITH IN REACH AND ABLE TO CALL AND USE PHONE TO CALL FOR HELP.
[2019-07-20] MEDS: cloNIDine 0.1 MG TAB PO SCH ×3 (07:00→23:42)
--- NOTE | 2019-07-20 07:10 | NUR ---
RECEIVED BEDSIDE REPORT FROM BATTERY LOADER NURSE, PT IS GETTING DIALYSIS AT THIS TIME. PT IS AWAKE AND ALERT, NO S/S OF ACUTE DISTRESS. PT IS ON ROOM AIR, SKIN INTACT, HOWEVER SCABS AND BRUISES ARE NOTED ON BUE'S. PT HAS A LUE MIDLINE, SALINE LOCKED. FALL PRECAUTIONS IN PLACE. CALL LIGHT IS WITHIN REACH. WILL CONTINUE TO MONITOR.
--- NOTE | 2019-07-20 07:18 | NUR ---
RECEIVED BEDSIDE REPORT FROM LABORER CARPENTRY DOCK NURSE, PT IS ASLEEP, NO S/S OF ACUTE DISTRESS, NO SOB. PT IS ON ROOM AIR, SKIN INTACT. IV SITE R HAND 20 G, INFUSING NS 100 ML/HR. FALL PRECAUTIONS IN PLACE, HOWEVER, PT IS ABLE TO AMBULATE. CALL LIGHT IS WITHIN REACH. WILL CONTINUE TO MONITOR.
[2019-07-20 07:22] LABS: BASOPHILS % (AUTO) 0.6 % (0.0-2.0); EOSINOPHILS # (AUTO) 0.5 K/uL (0-0.4); HEMATOCRIT 33.7 % (36-52); HEMOGLOBIN 11.8 g/dL (12.0-18.0); LYMPHOCYTES # (AUTO) 1.3 K/uL (2.0-11.5); LYMPHOCYTES % (AUTO) 23.4 % (20.5-51.1); MEAN CORPUSCULAR HEMOGLOBIN 32 pg (27-31); MEAN CORPUSCULAR HGB CONC 35 g/dL (33-37); MEAN CORPUSCULAR VOLUME 90.5 fL (80-94); MONOCYTES # (AUTO) 0.8 K/uL (0.8-1.0); MONOCYTES % (AUTO) 13.7 % (1.7-9.3); NEUTROPHILS # (AUTO) 3.1 K/uL (1.8-7.7); NEUTROPHILS % (AUTO) 54.3 % (42.2-75.2); PLATELET COUNT (AUTO) 248 K/uL (140-450); RED BLOOD CELL COUNT(AUTO) 3.73 MIL/uL (4.20-6.10); RED CELL DISTRIBUTION WIDTH 14.6 % (11.6-13.7); WHITE BLOOD COUNT (AUTO) 5.7 K/uL (4.8-10.8)
[2019-07-20 07:30] LABS: MAGNESIUM 1.9 mg/dL (1.8-2.4); PHOSPHORUS 3.3 mg/dL (2.5-4.9)
[2019-07-20] MEDS ORDERED: TRAM50TA1 PO ×2 (07:35→09:23)
[2019-07-20 07:46] LABS: ANION GAP 14.5 (8-16); CARBON DIOXIDE 26.5 mmol/L (21-32); CREATININE 2.4 mg/dL (0.7-1.3)
[2019-07-20 08:00] VITALS: BP 148/90
[2019-07-20] MEDS: CALCIUM ACETATE 667 MG TAB PO SCH (08:00)
[2019-07-20] MEDS ORDERED: POTA10TE30 PO ×2 (09:09→09:20)
[2019-07-20] MEDS ORDERED: HUM7030 SUBQ ×2 (09:09→09:20)
[2019-07-20] MEDS ORDERED: LANTUS SUBQ ×2 (09:09→09:20)
[2019-07-20] MEDS ORDERED: HUMSLIDE SUBQ ×2 (09:09→09:20)
[2019-07-20] MEDS ORDERED: CLON0.1T42 PO (09:20)
[2019-07-20] MEDS ORDERED: GABA-638 PO (09:20)
[2019-07-20] MEDS: MORPHINE SULFATE 2 MG/ML SYR IVP PRN ×4 (09:25→21:57)
[2019-07-20] MEDS: GABAPENTIN 300 MG CAP PO SCH (09:26)
[2019-07-20] MEDS: BACLOFEN 10 MG TAB PO SCH ×3 (09:27→17:25)
[2019-07-20] MEDS: LABETALOL 100 MG TAB PO SCH ×2 (09:27→22:02)
[2019-07-20] MEDS: POTASSIUM CHLORIDE 10 MEQ TABER PO SCH (09:27)
[2019-07-20] MEDS: INSULIN LANTUS 100 UNITS/ML 10 ML VIAL SUBQ SCH (09:43)
[2019-07-20] MEDS: INSULIN NPH HUM/REG INSULIN HM 100 UNIT/ML 10 ML VIAL SUBQ SCH ×2 (09:44→21:00)
--- NOTE | 2019-07-20 09:45 | NUR ---
AM MEDS ADMINISTERED, PT TOLERATED WELL
--- NOTE | 2019-07-20 10:32 | NUR ---
PT'S IV HAS PULLED OUT, WILL ATTEMPT NEW PLACEMENT
[2019-07-20] MEDS ORDERED: guaiFENesin/CODEINE 100/10MG 5 ML UDC PO SCH (11:00)
[2019-07-20] MEDS ORDERED: POTASSIUM CHLORIDE 10 MEQ TABER PO SCH (12:00)
--- NOTE | 2019-07-20 12:01 | NUR ---
PATIENT WAS GIVEN DIABETES NUTRITION EDUCATION BOTH VERBALLY AND WRITTEN HANDOUTS. PT WAS RECEPTIVE TO RECOMMENDATIONS AND HAD NO FURTHER QUESTIONS OR CONCERNS. IRIS YEAGER RD
[2019-07-20] MEDS ORDERED: FUROSEMIDE 20 MG/2 ML VIAL IVP SCH (13:00)
--- NOTE | 2019-07-20 13:00 | NUR ---
PT SEEN BY DR ADAMS
[2019-07-20 16:00] VITALS: BP 177/100
--- NOTE | 2019-07-20 17:53 | NUR ---
DR OWENS MADE AWARE THAT PT'S BP WENT UP AFTER ADMINISTERING THE SCHEDULED CLONIDINE 0.3 MG, FROM 177/100 TO 192/119. HE WILL PUT IN ORDER FOR AN ADDITIONAL BP MED.
[2019-07-20] MEDS ORDERED: hydrALAZINE 20 MG/ML VIAL IVP SCH (18:00)
--- NOTE | 2019-07-20 18:55 | NUR ---
PT C/O L KNEE AND R HIP PAIN. IS ASKING FOR AN XRAY, AND TO INCREASE HIS PAIN MEDICINE. DR OWENS AND DR SKELTON ARE AWARE, AND DR SKELTON WILL SPEAK WITH THE PT REGARDING THIS MATTER.
--- NOTE | 2019-07-20 19:15 | NUR ---
BP WENT DOWN TO 180/103 AFTER HYDRALAZINE IV PUSH. DR SKELTON IS AWARE AND WILL PUT IN ORDER FOR ANOTHER BP MED.
[2019-07-20] MEDS ORDERED: LABETALOL 100 MG/20 ML VIAL IV SCH (19:30)
--- NOTE | 2019-07-20 19:30 | NUR ---
ENDORSED PT TO DATA LEAD NURSE IN STABLE CONDITION
--- NOTE | 2019-07-20 19:31 | NUR ---
RECEIVED PT SITTING ON SIDE OF BED, AAOX4, VITAL SIGNS STABLE, BP-119/67, STILL COMPLAINING OF PAIN AND REQUESTING FOR MORE PAIN MEDICATION AND AWAITING TO TALKED TO RESIDENT ON DUTY, WILL FOLLOW UP, PLAN OF CARE DISCUSSED, SAFETY MEASURES IN PLACE, CALL LIGHT WITHIN REACH.
--- NOTE | 2019-07-20 21:30 | NUR ---
PT TAKEN TO RADIOLOGY DPT FOR XR OF LT KNEE AND BACK VIA WHEELCHAIR.
[2019-07-20] MEDS: ZOLPIDEM 5 MG TAB PO PRN (22:10)
--- NOTE | 2019-07-20 22:10 | NUR ---
PT BACK FROM RADIOLOGY, AMBULATED BACK TO BED WITH STEADY GAIT, MEDICATED WITH MORPHINE AND ATIVAN IVP, PT REQUESTING SLEEPING, AMBIEN PO GIVEN, MONITORED CLOSELY.
[2019-07-21] VITALS: BP 161/109
--- NOTE | 2019-07-21 00:20 | NUR ---
DR SKELTON AND I TALKED TO PT REGARDING HIS REQUEST FOR MORE PAIN MEDICATION, EXPLAINED TO HIM THE RESULTS OF THE XRAY AND METHOD OF TREATMENT, PT VERBALIZED UNDERSTANDING, WILL MEDICATE WITH MORPHINE AND ATIVAN WHEN DUE AT 0155, ALL NEEDS ATTENDED.
[2019-07-21] MEDS: MORPHINE SULFATE 2 MG/ML SYR IVP PRN ×2 (01:53→09:01)
[2019-07-21] MEDS: LORazepam 2 MG/ML VIAL IM/IVP PRN ×2 (01:56→09:02)
[2019-07-21] MEDS ORDERED: hydrALAZINE 20 MG/ML VIAL IVP SCH (02:00)
[2019-07-21] MEDS: INSULIN LISPRO SLIDING SCALE 100 UNITS/ML VIAL SUBQ PRN (06:19)
[2019-07-21] MEDS ORDERED: FURO-572 PO (06:35)
--- NOTE | 2019-07-21 06:35 | NUR ---
PT SLEEPING EASILY AROUSABLE, BLOOD SUGAR CHECKED WITH 286 RESULT, COVERAGE GIVEN, BP-156/86, HR-77, DUE CLONIDINE 0.3MG ADMINISTERED, MONITORED CLOSELY.
[2019-07-21] MEDS: cloNIDine 0.1 MG TAB PO SCH (06:37)
[2019-07-21] MEDS: BLOOD GLUCOSE MONITORING 1 DEV DEV FS SCH (06:37)
--- NOTE | 2019-07-21 07:24 | NUR ---
PT AWAKE, NO SIGNS OF DISTRESS, REPORT GIVEN TO BABAK SARMIENTO FOR CONTINUITY OF CARE.
--- NOTE | 2019-07-21 07:25 | NUR ---
RECEIVED REPORT FROM SHIPPING SUPPORT NURSE. PATIENT SITTING IN BED. NO DISTRESS NOTED. PAIN WITHIN TOLERABLE. AAOX4, CALM, COOPERATIVE, SKIN COLOR APPROPRIATE TO ETHNICITY, WARM TO TOUCH. SKIN COLOR APPROPRIATE TO ETHNICITY, WARM TO TOUCH. IV SITE INTACT, PATENT, AND INFUSING IVF PER MD ORDERS. REVIEWED PLAN OF CARE WITH PATIENT. PATIENT VERBALIZED UNDERSTANDING. SAFETY MEASURES IN PLACE, CALL LIGHT WITHIN REACH. WILL CONTINUE TO MONITOR.
[2019-07-21 08:00] VITALS: BP 170/100
[2019-07-21] MEDS: CALCIUM ACETATE 667 MG TAB PO SCH (08:00)
[2019-07-21] MEDS: POTASSIUM CHLORIDE 10 MEQ TABER PO SCH (08:53)
[2019-07-21] MEDS: BACLOFEN 10 MG TAB PO SCH (08:53)
[2019-07-21] MEDS: LABETALOL 100 MG TAB PO SCH (08:53)
[2019-07-21] MEDS: GABAPENTIN 300 MG CAP PO SCH (08:54)
[2019-07-21] MEDS: INSULIN LANTUS 100 UNITS/ML 10 ML VIAL SUBQ SCH (08:57)
[2019-07-21] MEDS: INSULIN NPH HUM/REG INSULIN HM 100 UNIT/ML 10 ML VIAL SUBQ SCH (09:00)
--- NOTE | 2019-07-21 09:09 | NUR ---
PATIENT SITTING IN BED WITH COMPLAINTS OF PAIN. MORPHINE AND ATIVAN GIVEN AT THIS TIME. OTHER SCHEDULED MEDICATIONS DUE GIVEN. WILL CONTINUE TO MONITOR.
--- NOTE | 2019-07-21 10:35 | NUR ---
DISCHARGE INSTRUCTIONS PROVIDED TO PATIENT IN PREFERRED LANGUAGE OF INDIAN. INSTRUCTIONS ON NEW/CHANGED MEDICATION REGIMEN AND SIDE EFFECTS, FOLLOW-UP VISIT WITH PCP, AND ADA DIET REGIMEN. ANSWERED ALL OF PATIENT'S QUESTIONS REGARDING DISCHARGE. PATIENT VERBALIZED COMPLETE UNDERSTANDING. IV SITE REMOVED WITH MINIMAL BLOOD AND LUMEN COMPLETELY INTACT. ID BANDS REMOVED. ESCORTED PATIENT DOWN TO LOBBY VIA STEADY AMBULATION. PATIENT TO DRIVE SELF HOME. PATIENT DISCHARGED AT THIS TIME IN STABLE CONDITION VIA PRIVATE VEHICLE.
[2019-07-21 10:45] LABS: ANION GAP 11.4 (8-16); CARBON DIOXIDE 28.2 mmol/L (21-32); CREATININE 2.2 mg/dL (0.7-1.3)
[2019-07-21 11:16] LABS: POTASSIUM 2.6 mmol/L (3.5-5.1)
[2019-07-24] MEDS ORDERED: ROBAC PO (14:51)
[2019-07-24] MEDS ORDERED: DEXT118S25 PO (14:55)
== END 2019-07-21 10:35 | disposition home or self-care (01) | DRG 420 ==
LOC: MED 16:40 → MTU 21:07
PROVIDERS: ADMIT General Practice; ATTEND General Practice
DX: E11.00 Type 2 diabetes mellitus with hyperosmolarity without nonketotic hyperglycemic-hyperosmolar coma (NKHHC) (principal); N17.0 Acute kidney failure with tubular necrosis; E11.649 Type 2 diabetes mellitus with hypoglycemia without coma; E83.39 Other disorders of phosphorus metabolism; F11.20 Opioid dependence, uncomplicated; E87.70 Fluid overload, unspecified; K31.84 Gastroparesis; E11.43 Type 2 diabetes mellitus with diabetic autonomic (poly)neuropathy; E11.65 Type 2 diabetes mellitus with hyperglycemia; M54.2 Cervicalgia; E66.9 Obesity, unspecified; J45.909 Unspecified asthma, uncomplicated; E86.0 Dehydration; N18.9 Chronic kidney disease, unspecified; I12.9 Hypertensive chronic kidney disease with stage 1 through stage 4 chronic kidney disease, or unspecified chronic kidney disease; E11.22 Type 2 diabetes mellitus with diabetic chronic kidney disease; E87.1 Hypo-osmolality and hyponatremia; E87.6 Hypokalemia; R51 Headache; M17.12 Unilateral primary osteoarthritis, left knee; E78.1 Pure hyperglyceridemia; Z68.38 Body mass index [BMI] 38.0-38.9, adult; Z88.8 Allergy status to other drugs, medicaments and biological substances
CPT/HCPCS: 36415; 36600; 70360; 70450; 71045; 72110; 73562; 76770; 80048; 80053; 80305; 81001; 82150; 82803; 82948; 83036; 83605; 83690; 83735; 83880; 84100; 84134; 84443; 85025; 85610; 85730; 87040; 87081; 93925; 93970; 96361; 96374; 96375; 99285; J0360; J1200; J1644; J1815; J1940; J2001; J2060; J2270; J2765; J3010; J3475; J3480; J3490; J7030; Q0092

== ENCOUNTER 2019-08-14 14:31 | Inpatient (IN) | payer MEDICAID ==
[~2019-08-14] VITALS: Ht 170.2 cm; Wt 112.9 kg
[~2019-08-14 14:31] MED LIST changes: -ACET-787 PO; -ASPI-1173 PO; -ATOR20TA40 PO; +DEXT118S25 PO; +GABA-638 PO; -GLIP5TER PO; +HUM7030 SUBQ; +HUMSLIDE SUBQ; +LANTUS SUBQ; -LEVO750T2 PO; -LISI-420 PO; -NIFE90TE3 PO; +POTA10TE30 PO; -TRA100 PO; +TRAM50TA1 PO
[2019-08-14 14:39] VITALS: BP 195/91
--- NOTE | 2019-08-14 14:47 | NUR ---
PT TAKEN TO BED 11.
--- NOTE | 2019-08-14 14:48 | NUR ---
PT AMBULATED TO ED BED 11
--- NOTE | 2019-08-14 14:59 | NUR ---
49 Y/O MALE C/O OF LEFT FLANK PAIN THAT RADIATES TO BLADDER AREA AND BLOOD IN THE URINE X2D. PT STATES NO PAIN WITH URINATION. 9/10 PAIN THAT IS STABBING AND THROBBING. TAKING HYDROCODONE 325 WITH NO RELIEF. DENIES ANY FALLS OR TRAUMA.
[2019-08-14] MEDS ORDERED: NACL 0.9% 500 ML IV ONE ×2 (15:04→17:30)
[2019-08-14] MEDS ORDERED: MORPHINE SULFATE 2 MG/ML SYR IVP ONE ×3 (15:05→17:20)
[2019-08-14] MEDS ORDERED: ONDANSETRON 4 MG/2 ML VIAL IVP ONE (15:05)
--- NOTE | 2019-08-14 16:12 | NUR ---
500 ML BOLUS RUNNING , MORPHINE AND ZOFRAN ADMINISTERED
[2019-08-14 16:17] LABS: BASOPHILS % (AUTO) 0.7 % (0.0-2.0); EOSINOPHILS # (AUTO) 0.4 K/uL (0-0.4); EOSINOPHILS % (AUTO) 6.4 % (0.0-4.0); HEMOGLOBIN 12.8 g/dL (12.0-18.0); LYMPHOCYTES # (AUTO) 1.6 K/uL (2.0-11.5); MEAN CORPUSCULAR HEMOGLOBIN 32 pg (27-31); MEAN CORPUSCULAR HGB CONC 34 g/dL (33-37); MEAN CORPUSCULAR VOLUME 91.9 fL (80-94); MONOCYTES # (AUTO) 0.9 K/uL (0.8-1.0); MONOCYTES % (AUTO) 13.5 % (1.7-9.3); NEUTROPHILS # (AUTO) 3.7 K/uL (1.8-7.7); NEUTROPHILS % (AUTO) 55.4 % (42.2-75.2); PLATELET COUNT (AUTO) 297 K/uL (140-450); RED BLOOD CELL COUNT(AUTO) 4.03 MIL/uL (4.20-6.10); WHITE BLOOD COUNT (AUTO) 6.6 K/uL (4.8-10.8)
[2019-08-14 16:48] LABS: ALBUMIN 3.9 g/dL (3.4-5.0); ANION GAP 15.3 (8-16); CARBON DIOXIDE 28.4 mmol/L (21-32); TOTAL BILIRUBIN 0.3 mg/dL (0.0-1.0)
[2019-08-14 16:50] LABS: POTASSIUM 2.7 mmol/L (3.5-5.1)
[2019-08-14] MEDS ORDERED: POTASSIUM CHL 20 MEQ/ 1/2 NS 1,000 ML IV ONE (16:55)
--- NOTE | 2019-08-14 17:03 | NUR ---
PT RETURNED FROM CT VIA WHEELCHAIR
[2019-08-14] MEDS ORDERED: LEVOFLOXACIN 500 MG/D5W PREMIX 100 ML IV ONE (17:35)
[2019-08-14] MEDS ORDERED: fentaNYL 0.05 MG/ML VIAL IVP ONE (17:50)
[2019-08-14] MEDS ORDERED: METF1000 PO (18:06)
[2019-08-14] MEDS ORDERED: ACET-787 PO (18:06)
[2019-08-14] MEDS ORDERED: ZOLP10TA1 PO (18:06)
[2019-08-14] MEDS ORDERED: TRA200 PO ×2 (18:06→19:51)
[2019-08-14] MEDS ORDERED: GABA300C PO (18:06)
[2019-08-14] MEDS ORDERED: CLON0.3T23 PO (18:06)
--- NOTE | 2019-08-14 18:16 | NUR ---
SPOKE TO SOLUTION SPECIALIST SHANNAN Bower FROM [facility]. PER SOLUTION SPECIALIST PT APPROVED TO BE ADMITTED. WORK CELL PHONE NUMBER :
[2019-08-14] MEDS ORDERED: HYDROcodone/APAP 7.5/325 MG 1 TAB PO PRN (18:25)
[2019-08-14] MEDS ORDERED: ONDANSETRON 4 MG/2 ML VIAL IVP PRN (18:25)
[2019-08-14] MEDS: NACL 0.9% 1,000 ML IV SCH (18:25)
[2019-08-14] MEDS ORDERED: ACETAMINOPHEN 325 MG TAB PO PRN (18:25)
[2019-08-14] MEDS ORDERED: POTASSIUM CHLORIDE 40 MEQ, LIDOCAINE MPF 1% 25 MG in NACL 0.9% 250 ML IV SCH (19:00)
[2019-08-14 19:03] LABS: BILIRUBIN,URINE NEGATIVE (NEGATIVE); BLOOD, URINE 3+ (NEGATIVE); LEUKOCYTE ESTERASE ,URINE NEGATIVE (NEGATIVE); NITRITE, URINE NEGATIVE (NEGATIVE); UGLUCOSE 3+ (NEGATIVE)
[2019-08-14 19:04] LABS: APPEARANCE,URINE BLOODY (CLEAR); COLOR,URINE RED (YELLOW)
[2019-08-14 19:05] LABS: RBC,URINE TOO NUMEROUS TO COUN /HPF (0-5); WBC,URINE NONE SEEN /HPF (0-5)
[2019-08-14 19:20] VITALS: BP 202/116
--- NOTE | 2019-08-14 19:20 | NUR ---
ADMITTED A 49 YEAR OLD MALE VIA GURNEY ACCOMPANIED BY 2 RNS. ALERT AND ORIENTED X4. NO APPARENT DISTRESS NOTED. WITH COMPLAINT OF 10/10 PAIN ON LEFT FLANK AREA. WILL MEDICATE PER PAIN SCALE. ORIENTED TO HOSPITAL ROUTINE, ROOMMATE, STAFF AND ENVIRONMENT. CALL LIGHT WITHIN REACH. BED ON LOW POSITION. AMBULATORY TO THE BATHROOM. WILL CONTINUE TO MONITOR.
--- NOTE | 2019-08-14 19:27 | NUR ---
Patient will be admitted to care of DR DE LEON. Admited to TELEMETRY. Will go to [facility]. Belongings list completed. Report to BABAK BRAUN.
--- NOTE | 2019-08-14 19:30 | NUR ---
OFFERED NORCO FOR PAIN BUT PATIENT BECAME FRUSTRATED AND ASKED TO SPEAK TO THE DOCTOR. SPOKE TO RESIDENT DOCTOR AND ORDERED MORPHINE.
[2019-08-14] MEDS ORDERED: MORPHINE SULFATE 4 MG/ML SYR IVP PRN (19:40)
[2019-08-14 19:44] LABS: PROTHROMBIN TIME 9.1 secs (10.8-13.4)
[2019-08-14 19:47] LABS: MAGNESIUM 1.6 mg/dL (1.8-2.4); PHOSPHORUS 2.3 mg/dL (2.5-4.9); THYROID STIMULATING HORMONE 0.38 uIU/mL (0.34-3.74)
[2019-08-14] MEDS ORDERED: HYDROcodone/APAP 10/325 MG 1 TAB TAB PO PRN (19:55)
[2019-08-14] MEDS ORDERED: DEXTROSE 50% 50 ML SYR IVP PRN (19:55)
[2019-08-14 20:06] LABS: BARBITURATE, URINE NEGATIVE ng/ml (NEG <=200); BENZODIAZEPINE, URINE NEGATIVE ng/mL (NEG <=200); CANNABINOID, URINE NEGATIVE ng/mL (NEG <=50); OPIATE, URINE NEGATIVE ng/mL (NEG <=2000); PHENCYCLIDINE SCREEN,URINE NEGATIVE ng/mL (NEG <=25)
--- NOTE | 2019-08-14 20:19 | NUR ---
PATIENT REFUSING MORPHINE AND REQUESTING STRONGER PAIN MEDICATION BECAUSE ACCORDING TO PATIENT MORPHINE DOES NOT WORK ON HIM. INFORMED DOCTOR. RESIDENT DOCTOR BILL SPOKE TO PATIENT. PATIENT AGREED TO TRY MORPHINE BUT STILL INSISTING THAT IT WILL NOT WORK.
[2019-08-14 20:33] LABS: COCAINE, URINE NEGATIVE ng/mL (NEG <=300)
[2019-08-14] MEDS ORDERED: cefTRIAXone 1,000 MG VIAL ONE (20:36)
[2019-08-14] MEDS ORDERED: traMADol 50 MG TAB PO PRN ×2 (20:40→20:45)
[2019-08-14] MEDS ORDERED: CRUSHER, PILL MC ONE (20:47)
[2019-08-14] MEDS ORDERED: LABETALOL 200 MG TAB PO SCH (21:00)
[2019-08-14] MEDS ORDERED: POTASSIUM CHLORIDE 10 MEQ TABER PO SCH (21:00)
[2019-08-14] MEDS ORDERED: metFORMIN 500 MG TAB PO SCH (21:00)
[2019-08-14] MEDS ORDERED: GABAPENTIN 300 MG CAP PO SCH (21:00)
[2019-08-14] MEDS ORDERED: cloNIDine 0.1 MG TAB PO SCH (21:00)
[2019-08-14] MEDS ORDERED: ZOLPIDEM 10 MG TAB PO SCH (21:00)
[2019-08-14] MEDS ORDERED: DOCUSATE SODIUM 100 MG GELCAP PO SCH (21:00)
[2019-08-14] MEDS: INSULIN LISPRO SLIDING SCALE 100 UNITS/ML VIAL SUBQ PRN (21:46)
[2019-08-14] MEDS: BLOOD GLUCOSE MONITORING 1 DEV DEV FS SCH (21:47)
--- NOTE | 2019-08-14 22:18 | NUR ---
PATIENT STILL WITH COMPLAINT OF PAIN 05/07 AND REQUESTING TO TALK TO RESIDENT DOCTOR. DOCTOR SPOKE TO PATIENT AND PATIENT STILL INSISTING TO GET STRONGER PAIN MEDICATION. RESIDENT DOCTOR EXPLAINED TO PATIENT RISK VS BENEFITS BUT PATIENT STILL INSISTING TO GET STRONGER TYPE OF PAIN MEDICATION. WILL MEDICATE PER ORDERED PAIN MEDICATION. WILL CONTINUE TO MONITOR.
[2019-08-14] MEDS ORDERED: IBUPROFEN 600 MG TAB PO PRN (22:50)
--- NOTE | 2019-08-14 22:50 | NUR ---
PICC LINE INSERTED BY PICC LINE NURSE. CHEST XRAY DONE. OKAY TO USE PER PICC LINE NURSE. WILL CONTINUE TO MONITOR.
[2019-08-14] MEDS ORDERED: MAGNESIUM OXIDE 400 MG TAB PO SCH (23:00)
[2019-08-14] MEDS ORDERED: hydrALAZINE 20 MG/ML VIAL IVP PRN (23:30)
[2019-08-14] MEDS: MORPHINE SULFATE 4 MG/ML SYR IVP PRN (23:47)
[2019-08-15] VITALS: BP 177/130
[2019-08-15] MEDS ORDERED: LORazepam 1 MG TAB PO PRN
--- NOTE | 2019-08-15 00:18 | NUR ---
PATIENT AWAKE IN CHAIR. NO APPARENT DISTRESS NOTED. WILL CONTINUE TO MONITOR.
[2019-08-15] MEDS: MORPHINE SULFATE 4 MG/ML SYR IVP PRN ×3 (01:52→06:00)
--- NOTE | 2019-08-15 02:00 | NUR ---
MEDICATED PATIENT PER PAIN SCALE. NO APPARENT DISTRESS NOTED. WILL CONTINUE TO MONITOR.
[2019-08-15 04:00] VITALS: BP 182/97
--- NOTE | 2019-08-15 04:00 | NUR ---
PATIENT ASLEEP IN CHAIR. NO APPARENT DISTRESS NOTED. VISIBLE CHEST RISE AND FALL NOTED. WILL CONTINUE TO MONITOR.
--- NOTE | 2019-08-15 05:49 | NUR ---
PATIENT ASLEEP IN CHAIR. NO APPARENT DISTRESS NOTED. VISIBLE CHEST RISE AND FALL NOTED. WILL CONTINUE TO MONITOR.
[2019-08-15] MEDS: NACL 0.9% 1,000 ML IV SCH (05:59)
[2019-08-15] MEDS: INSULIN LISPRO SLIDING SCALE 100 UNITS/ML VIAL SUBQ PRN (06:05)
[2019-08-15] MEDS: BLOOD GLUCOSE MONITORING 1 DEV DEV FS SCH (06:31)
[2019-08-15 06:59] LABS: MAGNESIUM 1.5 mg/dL (1.8-2.4); PHOSPHORUS 3.4 mg/dL (2.5-4.9)
[2019-08-15 07:03] LABS: ANION GAP 12.5 (8-16); CARBON DIOXIDE 30.1 mmol/L (21-32); CREATININE 2.1 mg/dL (0.7-1.3)
--- NOTE | 2019-08-15 07:10 | NUR ---
ENDORSED TO NEXT SHIFT FOR CONTINUITY OF CARE.
--- NOTE | 2019-08-15 07:11 | NUR ---
RECEIVED REPORT FROM FIBER TECHNICIAN NURSE. PATIENT LYING DOWN IN BED SLEEPING, AROUSABLE BY VOICE. NO DISTRESS NOTED. PAIN WITHIN TOLERABLE AT THIS TIME. AAOX3, CALM, COOPERATIVE, SKIN COLOR APPROPRIATE TO ETHNICITY, WARM TO TOUCH. SKIN INTACT. RUARM PICC LINE INTACT, PATENT, AND INFUSING IVF PER MD ORDERS. RESPIRATIONS EVEN, UNLABORED, ON ROOM AIR. REVIEWED PLAN OF CARE WITH PATIENT. PATIENT VERBALIZED UNDERSTANDING. SAFETY MEASURES IN PLACE, CALL LIGHT WITHIN REACH. WILL CONTINUE TO MONITOR.
[2019-08-15 07:33] LABS: POTASSIUM 2.6 mmol/L (3.5-5.1)
[2019-08-15 07:46] LABS: BASOPHILS % (AUTO) 0.6 % (0.0-2.0); EOSINOPHILS # (AUTO) 0.4 K/uL (0-0.4); EOSINOPHILS % (AUTO) 5.5 % (0.0-4.0); HEMATOCRIT 35.2 % (36-52); HEMOGLOBIN 11.9 g/dL (12.0-18.0); LYMPHOCYTES # (AUTO) 1.4 K/uL (2.0-11.5); LYMPHOCYTES % (AUTO) 21.7 % (20.5-51.1); MEAN CORPUSCULAR HEMOGLOBIN 32 pg (27-31); MEAN CORPUSCULAR HGB CONC 34 g/dL (33-37); MEAN CORPUSCULAR VOLUME 93.5 fL (80-94); MONOCYTES # (AUTO) 0.9 K/uL (0.8-1.0); MONOCYTES % (AUTO) 13.2 % (1.7-9.3); NEUTROPHILS # (AUTO) 3.9 K/uL (1.8-7.7); PLATELET COUNT (AUTO) 274 K/uL (140-450); RED BLOOD CELL COUNT(AUTO) 3.76 MIL/uL (4.20-6.10); WHITE BLOOD COUNT (AUTO) 6.6 K/uL (4.8-10.8)
[2019-08-15] MEDS ORDERED: metFORMIN 500 MG TAB PO SCH (08:00)
[2019-08-15] MEDS ORDERED: FENOFIBRATE 48 MG TAB PO SCH (08:00)
[2019-08-15] MEDS ORDERED: SODIUM PHOS / POTASSIUM PHOS 1 PKT PDR PO SCH (08:00)
[2019-08-15] MEDS ORDERED: MORPHINE SULFATE 2 MG/ML SYR IVP PRN (08:05)
[2019-08-15] MEDS ORDERED: KCL 20 MEQ/WATER INJ PREMIX 200 ML IV SCH ×2 (08:30→13:00)
--- NOTE | 2019-08-15 08:45 | NUR ---
PATIENT WISHES TO LEAVE AMA BECAUSE HE FEELS THAT HE IS NOT BEING TREATED HERE. NOTIFIED DR. CLINE. DR. CLINE TALKED WITH PATIENT AND DISCUSSED RISKS ASSOCIATED WITH LEAVING AMA. PATIENT WISHES TO CONTINUE TO AMA DESPITE RISKS. FLATWORK FINISHER HAND NOTIFIED AND CHARGE NURSE AWARE. PICC LINE REMOVED ON RUARM, PATIENT TOLERATED PROCEDURE WELL. ALL BELONGINGS WITH PATIENT. PATIENT LEFT AMA AT THIS TIME.
[2019-08-15] MEDS ORDERED: INSULIN LANTUS 100 UNITS/ML 10 ML VIAL SUBQ SCH (09:00)
[2019-08-15] MEDS ORDERED: FAMOTIDINE 20 MG TAB PO SCH (09:00)
[2019-08-15] MEDS ORDERED: PHENAZOPYRIDINE 100 MG TAB PO SCH (09:00)
[2019-08-15] MEDS ORDERED: cloNIDine 0.1 MG TAB PO SCH (09:00)
== END 2019-08-15 08:45 | disposition left against medical advice (07) | DRG 469 ==
LOC: MED 14:31 → MTU 18:33
PROVIDERS: ADMIT General Practice; ATTEND General Practice
PROC: 02HV33Z Insertion of Infusion Device into Superior Vena Cava, Percutaneous Approach (ICD-10-PCS; principal; 2019-08-14)
PROC: B548ZZA Ultrasonography of Superior Vena Cava, Guidance (ICD-10-PCS; 2019-08-14)
DX: N17.0 Acute kidney failure with tubular necrosis (principal); E11.40 Type 2 diabetes mellitus with diabetic neuropathy, unspecified; E11.65 Type 2 diabetes mellitus with hyperglycemia; E83.39 Other disorders of phosphorus metabolism; F11.20 Opioid dependence, uncomplicated; E87.8 Other disorders of electrolyte and fluid balance, not elsewhere classified; N12 Tubulo-interstitial nephritis, not specified as acute or chronic; N28.1 Cyst of kidney, acquired; I10 Essential (primary) hypertension; E87.6 Hypokalemia; E83.42 Hypomagnesemia; E66.9 Obesity, unspecified; E78.5 Hyperlipidemia, unspecified; M17.12 Unilateral primary osteoarthritis, left knee; G47.00 Insomnia, unspecified; Z53.29 Procedure and treatment not carried out because of patient's decision for other reasons; N20.0 Calculus of kidney; Z88.8 Allergy status to other drugs, medicaments and biological substances; Z79.84 Long term (current) use of oral hypoglycemic drugs; Z79.899 Other long term (current) drug therapy; Z91.018 Allergy to other foods; Z68.39 Body mass index [BMI] 39.0-39.9, adult
CPT/HCPCS: 36415; 71045; 80048; 80053; 80305; 81001; 82948; 83036; 83605; 83690; 83735; 83880; 84100; 84443; 84484; 85025; 85610; 85730; 87040; 87081; 87086; 93005; 96361; 96374; 96375; 96376; 99285; C1751; J0360; J0696; J1644; J1815; J2001; J2270; J2405; J3010; J3480; J7030; J7060; Q0092

== ENCOUNTER 2022-01-12 09:03 | Emergency (ER) | payer OTHER ==
[~2022-01-12] VITALS: Ht 165.1 cm; Wt 83.9 kg
[~2022-01-12 09:03] MED LIST changes: +CLON-865 PO; -CLON0.1T42 PO; -DEXT118S25 PO; -GABA-638 PO; +GABA300C PO; -HUM7030 SUBQ; -HUMSLIDE SUBQ; +HYDR-5191 PO; -LANTUS SUBQ; +METF-1274 PO; -POTA10TE30 PO; +TRA200 PO; -TRAM50TA1 PO; +ZOLP10TA1 PO
--- NOTE | 2022-01-12 09:06 | NUR ---
RICHIE SEVILLA VIA GURNEY TO BED 05.
[2022-01-12 09:08] VITALS: BP 132/82
[2022-01-12] MEDS ORDERED: HYDROmorphone PFS 2 MG/ML SYR IVP ONE ×3 (09:45→12:55)
[2022-01-12] MEDS ORDERED: CRUSHER, PILL MC ONE (09:57)
--- NOTE | 2022-01-12 10:21 | NUR ---
51 y/o alexa marques from dialysis, pt was in dialysis and finished 30 minutes of tx out fo 3 hours. pt was c/o right sided flank pain and cva tenderness. denies nausea, vomiting, diarrhea. skin is pink/warm/dry. a&o x4 does not ambulate. lungs clear bl, heart rate even and regular. pt denies dysuria, urinary retention, or anyone sick in the household with the same symptoms. pt denies any fever, cp, sob, or cough at this time. pt states pain is 10/10 at this time patient positioned for comfort. hob elevated. bed down. ermd made aware of pt. pmh: dialysis, htn, pna, kidney stones, dm2 allergy: hydrochlorothiazide, ketorolac
[2022-01-12 10:26] LABS: APPEARANCE,URINE SL CLOUDY (CLEAR); BILIRUBIN,URINE NEGATIVE (NEGATIVE); BLOOD, URINE 3+ (NEGATIVE); COLOR,URINE BROWN (YELLOW); LEUKOCYTE ESTERASE ,URINE TRACE (NEGATIVE); NITRITE, URINE NEGATIVE (NEGATIVE); PH,URINE 7.5 (5.0-9.0); UGLUCOSE TRACE (NEGATIVE)
[2022-01-12 10:29] LABS: BASOPHILS # (AUTO) 0.1 K/uL (0.00-0.22); BASOPHILS % (AUTO) 0.7 % (0.0-2.0); EOSINOPHILS # (AUTO) 0.4 K/uL (0-0.4); EOSINOPHILS % (AUTO) 3.8 % (0.0-4.0); HEMATOCRIT 25.1 % (36-52); HEMOGLOBIN 8.4 g/dL (12.0-18.0); LYMPHOCYTES % (AUTO) 9.5 % (20.5-51.1); MEAN CORPUSCULAR HEMOGLOBIN 32 pg (27-31); MEAN CORPUSCULAR HGB CONC 34 g/dL (33-37); MEAN CORPUSCULAR VOLUME 93.9 fL (80-94); MONOCYTES # (AUTO) 1.2 K/uL (0.8-1.0); MONOCYTES % (AUTO) 11.1 % (1.7-9.3); NEUTROPHILS # (AUTO) 8.2 K/uL (1.8-7.7); NEUTROPHILS % (AUTO) 74.9 % (42.2-75.2); PLATELET COUNT (AUTO) 411 K/uL (140-450); RED BLOOD CELL COUNT(AUTO) 2.68 MIL/uL (4.20-6.10); RED CELL DISTRIBUTION WIDTH 15.6 % (11.6-13.7); WHITE BLOOD COUNT (AUTO) 10.9 K/uL (4.8-10.8)
[2022-01-12 10:47] LABS: RBC,URINE 50-80 /HPF (0-5)
[2022-01-12] MEDS ORDERED: CEPH-588 PO ×2 (12:30→14:10)
[2022-01-12 12:45] LABS: ALBUMIN 3.3 g/dL (3.4-5.0); ANION GAP 15.6 (8-16); CARBON DIOXIDE 25.8 mmol/L (21-32); POTASSIUM 3.4 mmol/L (3.5-5.1); TOTAL BILIRUBIN 0.2 mg/dL (0.0-1.0)
[2022-01-12 12:47] LABS: CREATININE 6.4 mg/dL (0.6-1.3)
--- NOTE | 2022-01-12 13:10 | NUR ---
called child twice, left voicemail for discharge transport
--- NOTE | 2022-01-12 13:12 | NUR ---
called Adán HILLIARD at [facility] for transport. states they will call back with possible transfer information
[2022-01-12 15:29] VITALS: BP 114/67
--- NOTE | 2022-01-12 15:30 | NUR ---
The patient's care was reviewed and supervised by Cassi Stubbs, RN, RN.
--- NOTE | 2022-01-12 15:30 | NUR ---
Patient discharged with v/s stable. Written and verbal after care instructions given. Patient alert, oriented and verbalized understanding of instructions. Ambulatory with to half-way. All questions addressed prior to discharge. ID band removed. Patient advised to follow up with PMD. Rx of keflex given. Opportunity to ask questions provided and answered.
--- NOTE | 2022-01-12 18:48 | NUR ---
The patient's care was reviewed and supervised by Cassi Stubbs, RN, RN.
== END 2022-01-12 15:30 | disposition home or self-care (01) ==
LOC: MED 09:03
DX: N30.91 Cystitis, unspecified with hematuria (principal); I12.0 Hypertensive chronic kidney disease with stage 5 chronic kidney disease or end stage renal disease; N18.6 End stage renal disease; Z99.2 Dependence on renal dialysis
CPT/HCPCS: 36415; 71045; 74176; 80053; 81001; 83880; 84484; 85025; 87086; 93005; 96374; 96376; 99285; J1170; Q0163

== ENCOUNTER 2022-02-16 09:50 | Emergency (ER) | payer OTHER ==
[~2022-02-16] VITALS: Ht 170.2 cm; Wt 91.6 kg
[~2022-02-16 09:50] MED LIST changes: +CEPH-588 PO
--- NOTE | 2022-02-16 09:54 | NUR ---
PATIENT BIBA TO ER BED 9.
[2022-02-16 09:59] VITALS: BP 178/125
--- NOTE | 2022-02-16 10:05 | NUR ---
51 y/o male biba from dialysis, pt states he started having right flank pain with hematuria, pt states pain is now radiating to chest. pt has right picc line in place for medications, left arm shunt. glucose in triage: 130. pt normally lives at [facility], pt was at dialysis appointment, did not finish dialysis. a&o x4, ambulates with assist. lungs clear bl, heart rate even and regular at 85 rate. pt denies any fever, sob, or cough at this time. pt states pain is 9/10 at this time. patient positioned for comfort. hob elevated. bed down. ermd made aware of pt. pmh: renal failure, dialysis (saturday, saturday, saturday), dm2, pneumonia allergy: morphine, norco, tylenol (swelling) med: nitro 2 po, 325mg ASA
[2022-02-16 10:47] LABS: BASOPHILS % (AUTO) 0.5 % (0.0-2.0); EOSINOPHILS # (AUTO) 0.4 K/uL (0-0.4); HEMATOCRIT 30.5 % (36-52); LYMPHOCYTES % (AUTO) 13.6 % (20.5-51.1); MEAN CORPUSCULAR HEMOGLOBIN 31 pg (27-31); MEAN CORPUSCULAR HGB CONC 33 g/dL (33-37); NEUTROPHILS # (AUTO) 4.8 K/uL (1.8-7.7); NEUTROPHILS % (AUTO) 65.9 % (42.2-75.2); PLATELET COUNT (AUTO) 196 K/uL (140-450); RED BLOOD CELL COUNT(AUTO) 3.18 MIL/uL (4.20-6.10); RED CELL DISTRIBUTION WIDTH 17.7 % (11.6-13.7); WHITE BLOOD COUNT (AUTO) 7.3 K/uL (4.8-10.8)
[2022-02-16 11:17] LABS: ALBUMIN 3.2 g/dL (3.4-5.0); ANION GAP 14.9 (8-16); CARBON DIOXIDE 27.4 mmol/L (21-32); POTASSIUM 4.3 mmol/L (3.5-5.1); TOTAL BILIRUBIN 0.2 mg/dL (0.0-1.0)
[2022-02-16] MEDS ORDERED: HYDROcodone/APAP 10/325 MG 1 TAB TAB PO ONE ×2 (11:20→12:45)
[2022-02-16 11:21] LABS: CREATININE 4.6 mg/dL (0.6-1.3)
--- NOTE | 2022-02-16 12:02 | NUR ---
pt states he specifically wants dilaudid for pain releif. ermd made aware.
--- NOTE | 2022-02-16 12:07 | NUR ---
ER/MD notifted of possible allergic recation to Nocro pt sts "I think I swell when I take norco." ermd gave order for PO benadryl to be taken with norco. Pt made aware and is comfortable taking the norco. vss, pt stable at this time.
[2022-02-16] MEDS ORDERED: diphenhydrAMINE 50 MG/ML VIAL IM ONE (12:10)
[2022-02-16] MEDS ORDERED: diphenhydrAMINE 50 MG CAP PO ONE ×2 (12:16→12:20)
--- NOTE | 2022-02-16 13:08 | NUR ---
pt eloped at this time, ermd made aware
== END 2022-02-16 13:08 | disposition left against medical advice (07) ==
LOC: MED 09:50
DX: R10.9 Unspecified abdominal pain (principal); I10 Essential (primary) hypertension; E11.9 Type 2 diabetes mellitus without complications; N18.6 End stage renal disease; Z79.4 Long term (current) use of insulin; Z79.899 Other long term (current) drug therapy; Z79.1 Long term (current) use of non-steroidal anti-inflammatories (NSAID); Z88.8 Allergy status to other drugs, medicaments and biological substances; Z79.891 Long term (current) use of opiate analgesic; Z91.018 Allergy to other foods
CPT/HCPCS: 36415; 71045; 80053; 83880; 84484; 85025; 93005; 99285; Q0163